=== PATIENT | female | born 1940 | race Caucasian/White ===

== ENCOUNTER 2020-03-31 14:00 | Outpatient (RCR) | payer MEDICARE, OTHER, SELFPAY ==
--- NOTE | 2020-04-23 09:55 | MHC.PT.DC ---
[facility] [place] Office [place] Office [place] Office [address] Leonel Day [address] [phone] F: [phone] F: [phone] F: [phone] F: [phone] Physical Therapy Discharge Report Diagnosis: Vertigo Date of Surgery: Date of Evaluation: 03/03/20 Date of Discharge: 04/23/20 Treatments to Date: 7 Cancellations to Date: 0 No Shows to Date: 0 Discharge Status: Discharge Summary: Pt is able to ambulate with improved balance with v/h/d head turns. The patient would still benefit from continued treatment of Torticollis, but she will return after Botox injection. Electronically signed by: Daisha Baker DPT Please sign and return to therapist. Thank you for your referral.
== END 2020-04-23 13:17 | disposition other institution (70) ==
LOC: HO.PT 14:00
PROVIDERS: PCP Internal Medicine; Visit Provider Psychiatry & Neurology Neurology
DX: G45.0 Vertebro-basilar artery syndrome (principal); G62.9 Polyneuropathy, unspecified
CPT/HCPCS: 95992; 97110; 97112; 97116; 97162; 97535

== ENCOUNTER → 2020-10-08 09:36 | Outpatient (REF) | payer MEDICARE, OTHER, SELFPAY ==
--- NOTE | 2020-10-08 09:30 | CA_ITS ---
Transthoracic Echocardiogram Patient (Last, First, Middle): Molly Sanchez, Gender: Female Date of : 1940 Age: 80 Procedure Date: 10/08/2020 Procedure Type: Transthoracic Echocardiogram Location: OP Height: 170.18 cm Weight: 79.38 kg BSA: 1.91 m2 Heart Rate: bpm BP: 138 / 78 mmHg Etl Manager: ANDREW Referring MD: Izabella Tom MD Symptoms: DIZZINESS SYNCOPE Study Quality: Technically Difficult ECG Rhythm: Sinus Conclusions: - The left ventricular systolic function is normal. The visually estimated ejection fraction is between 60-65%. - No obvious valvular pathology seen on this study. Findings Left Ventricle Normal left ventricular cavity size. There is normal left ventricular wall thickness. The left ventricular systolic function is normal. The visually estimated ejection fraction is between 60-65%. There is no evidence of regional wall motion abnormalities. E/E prime ratio is <8, consistent with normal filling pressures. Evidence suggests grade I (mild) diastolic dysfunction. Right Ventricle Normal right ventricular cavity size and systolic function. Atria The left atrium is normal in size. The right atrium is normal in size. Aortic Valve There is a normal trileaflet aortic valve. There is no aortic valve stenosis. There is no aortic valve regurgitation. Mitral Valve The mitral valve appears normal. There is no mitral valve regurgitation. There is no mitral valve stenosis. Pulmonic Valve The pulmonic valve was not well visualized. Tricuspid Valve There is trace tricuspid valve regurgitation. The pulmonary artery systolic pressure is normal. Great Vessels The aortic annulus, sinuses of valsalva, asc aorta, and aortic arch are normal in size. Venous The inferior vena cava is normal in size and collapses greater than 50% with inspiration. Pericardium/Pleural There is no evidence of pericardial effusion. Prior Study Comparison No prior study available for comparison. Recommendations, Care & Conclusions No obvious valvular pathology seen on this study. Measurements M-Mode Liner Measurements Normals - Women/Men AOV Cusps: 1.80 1.5-2.6 cm/m2 2D Linear Measurements IVSd: 0.62 0.6-0.9/0.6-1.0 cm LVIDd: 3.24 3.9-5.3/4.2-5.9 cm LVIDd Index: 1.70 2.4-3.2/2.2-3.1 cm/m2 LVIDs: 2.80 2.0-3.6 cm LVPWd: 0.53 0.7-1.1 cm Ao Root: 2.90 2.1-3.5 cm LA Diam: 3.00 2.7-3.8/3.0-4.0 cm LAIDs Index: 1.57 1.5-2.3 cm/m2 LV Mass: 52.32 67-162/88-224 g LV Mass Index: 27.39 43-95/49-115 g/m2 LVOT Diam: 1.90 3.0+(-)1.3 cm 2D Systolic Function EF 4C: 66.00 >55% EF 2C: 67.80 >55% EF BiP: 64.80 >55% Mitral Valve MV Pk E: 0.63 MV PK A: 0.92 MV Decel Time: 213.00 E/A: 0.70 E'Lateral: 10.30 E'Medial: 8.05 E/E' Med: 7.80 E/E' Lat: 6.10 PHT: 62.00 MVA PHT: 3.55 Decel Banks: 2.94 Aortic Valve AoV Pk Wali: 1.44 AoV Mn Wali: 1.01 AoV VTI: 0.30 AoV Pk Grad: 8.00 Aov Mn Grad: 5.00 BLANCA Cont.VTI: 1.43 LVOT LVOT Pk Wali: 0.83 LVOT Mn Wali: 0.61 LVOT VTI: 0.15 LVOT Pk Grad: 3.00 LVOT Mn Grad: 2.00 LVOT Diam: 1.90 LVOT Area: 2.84 Diastolic Function MV Pk E: 0.63 MV Pk A: 0.92 E/A: 0.70 E'Medial: 8.05 E/E' Med: 7.80 E' Laterial: 10.30 E/E' Lat: 6.10 Tricuspid Valve TR Pk Wali: 2.28 TR Pk Grad: 21.00 RA Press: 3.00 RVSP: 24.00 Great Vessels Aorta Ao Root-2D: 2.90 2.0-3.7 cm Ao Asc: 3.00 2.1-3.4 cm Ao Arch: 2.90 Pulmonary Valve PV Pk Wali: 0.79 Peak PV Grad: 2.00 Updated in Other Vendor System with Status of Final Timothy Fletcher MD electronically signed on 10/09/2020 2:00:13 PM with status of Final
--- NOTE | 2020-10-08 11:00 | ECG_ITS ---
Hook-up date: 2020-10-08 10:32:00 Duration: 47:59:00 Test Indications: DIZZINESS, SYNCOPE Medications: [id number] QRS complexes 5 Ventricular ectopics which represent <1 % of total QRS comp. 146 Supraventricular ectopics which represent <1 % of total QRS comp. * Paced QRS complexs which represent % of total QRS comp. VENTRICULAR ECTOPY 5 Isolated 0 Bigeminal Cycles 0 Couplets 0 Runs 0 Beats in Runs * Beats LONGEST at * BPM at :: -- * Beats FASTEST at * BPM at :: -- SUPRAVENTRICULAR ECTOPY 118 Isolated 9 Couplets 2 Runs 10 Beats in Runs 7 Beats LONGEST at 117 BPM at 04:32:23 2020-10-10 7 Beats FASTEST at 117 BPM at 04:32:23 2020-10-10 HEART RATES 65 MIN at 06:16:01 2020-10-10 75 AVG 115 MAX at 18:01:52 2020-10-09 LONGEST RR 1.1120 secs at 07:54:01 2020-10-10 S-T LEVELS Channel 1 - 128 mm at 10:32:00 2020-10-08 - 128 mm at 10:32:00 2020-10-08 Channel 2 - 128 mm at 10:32:00 2020-10-08 - 128 mm at 10:32:00 2020-10-08 Channel 3 - 128 mm at 02:95:11 -- - 128 mm at 02:95:11 Underlying rhythm is sinus; Average ventricular rate 75/min; range 65-115/min; Rare supraventricular ectopy; mostly isolated, with brief runs; Rare PVCs; Chest pain, shortness of breath, dizziness in patient diary associated with sinus rhythm. Referred By: Izabella Tom Overread By: MARYBEL MANUEL
== END ==
LOC: HO.CARD 09:36
PROVIDERS: PCP Internal Medicine; Visit Provider Psychiatry & Neurology Neurology
DX: R42 Dizziness and giddiness (principal); R55 Syncope and collapse
CPT/HCPCS: 93225; 93226; 93306

== ENCOUNTER 2020-11-22 11:00 | Outpatient (REF) | payer MEDICARE, OTHER, SELFPAY ==
[2020-11-22 11:46] LABS: MANUAL DIFF FLAG NO
[2020-11-22 11:52] LABS: Basophils Percent Auto 0.4 % (0-2); Eosinophils Absolute Auto 0.2 X10*3/uL (0.0-0.4); Eosinophils Percent Auto 2.8 % (0-4); Hemoglobin 12.7 g/dl (12.0-16.0); Imm Gran Abs Auto 0.03 X10*3/uL (0.00-0.03); Imm Gran Pct Auto 0.6 % (0.0-0.4); Lymphocytes Absolute Auto 1.3 X10*3/uL (1.2-4.9); Lymphocytes Percent Auto 24.5 % (20-40); Mean Corpuscular Hemoglobin 27.5 pg (27.0-33.0); Mean Corpuscular Volume 88.7 fL (80-98); Mean Platelet Volume 9.6 fL (9.4-12.3); Monocytes Absolute Auto 0.5 X10*3/uL (0.1-1.2); Monocytes Percent Auto 9.6 % (2-11); Neutrophils Absolute Auto 3.4 X10*3/uL (2.0-8.3); Neutrophils Percent Auto 62.1 % (45-73); Platelet Count 251 X10*3/uL (160-400); Red Blood Count 4.62 X10*6/uL (4.20-5.50); Red Cell Distribution Width 13.4 % (11.0-16.0); White Blood Count 5.4 X10*3/uL (4.8-10.8)
[2020-11-22 12:17] LABS: Anion Gap 12 (12-20); Blood Urea Nitrogen 11 mg/dL (9-16); Calcium 9.9 mg/dL (8.4-10.2); Carbon Dioxide 30 mmol/L (22-29); Chloride 105 mmol/L (96-108); Estimated Glomerular Filt Rate > 60; Glucose Random 84 mg/dL (60-115); Potassium 4.7 mmol/L (3.3-5.1); Sodium 142 mmol/L (135-145)
[2020-11-22 12:26] LABS: T4 Thyroxine 6.7 ug/dL (4.5-12.0)
[2020-11-22 12:36] LABS: Erythrocyte Sedimentation Rate 9 MM/HR (0-20)
[2020-11-28 13:32] LABS: Vitamin D 25-OH, D2 <4 ng/mL; Vitamin D 25-OH, D3 46 ng/mL; Vitamin D 25-OH, Total 46 ng/mL (30-100)
== END 2020-11-22 11:01 | disposition home or self-care (01) ==
LOC: HO.LAB 11:00
PROVIDERS: PCP Internal Medicine; Visit Provider Psychiatry & Neurology Neurology
DX: R42 Dizziness and giddiness (principal)
CPT/HCPCS: 36415; 80048; 82306; 82550; 84436; 84443; 85025; 85652

== ENCOUNTER 2025-03-03 14:57 | Outpatient (AMB) | payer MEDICARE, OTHER, SELFPAY ==
--- NOTE | 2025-03-03 15:13 | MHC.OFFVIS ---
Intake Visit Reasons: 3m PN Accompanied by: Son Allergies sulfadiazine Allergy (Unknown, Verified 03/03/25 15:14) Unknown Medication List - Last Reconciled 03/03/25 by Rozina Soni CNP alendronate 70 mg PO QWEEK amantadine HCl 100 mg PO DAILY anastrozole 1 mg PO DAILY aripiprazole 5 mg PO DAILY bupropion HCl SR 200 mg PO QAM carbidopa-levodopa 25-100 mg (Sinemet) 1 tab PO .five times a day 90 days gabapentin 100 mg PO TID tiotropium bromide 2.5 mcg/actuation (Spiriva Respimat) 2 puffs inhalation DAILY venlafaxine ER 150 mg PO DAILY venlafaxine ER 75 mg PO DAILY HPI Comments Details: She was here with her son who was visiting from [place].?She ran out of amantadine about a week ago and needed refill. She was taking carbidopa-levodopa 5x/day. She was taking medication at 9a, 12p, 3p, 6p, and 9p. Tremors in hands were about the same, some days better than others, L > R. Intermittent mild tremor in legs that started earlier this year. At the end of 01/2025, she had 2 days of bad shaking in both legs which resolved and has not happened again. She was left handed and handwriting was not so good. She was using weighted utensils which helped with eating/drinking. No difficulty swallowing. Walking with walker, no falls. She was doing some exercises at home, including recumbent bike. Some fatigue during the day. Sleep was up and down, wakes few times to use bathroom. Mood was so-so, working with psychiatrist. She had few questions about this condition. Stopped carbidopa-levodopa for a period of time in 03/2024 and then had fall that month, unclear why she stopped taking medication. Resting hand tremors, L > R. Some tremor in left leg. Legs felt bit weaker. Trouble turning in bed. Fell on 07/07/2023 after getting up from reclining chair. Began to notice tremors in hands worsening and some tremors in legs beginning. She notices hand tremors at rest and with activity. Most bothered by tremors when trying to write, handwriting is messy and smaller. Tripped and fell on right side on . Living alone with 16-year-old dog. February 13, 2022 and has been depressed and stressed and has increased in tremors. Has also lost best friend, LESLY and KERI in about one year period from [id number]. She has spinal stenosis. Exercising with recumbent bike sometimes. Has spinal stenosis in LS spine. Had an epidural in LS spine in October 2020 with some relief of pain. Getting mild ADAIR every other day for a 1/2 hr. No vertigo on lying down and sitting up for a few minutes. She's also had multiple unexplained falls, a total of about 20, where she suddenly falls to the ground. Apparently because her legs buckle under her and then she feels weak and doesn't get up for a while till it passes. She had a single syncopal episode at home without any warning woke up on the floor about a year ago. She gets lightheaded on bending forward. In the past she's been treated for torticollis by Dr. Agrawal with Botox injections. She's also had some tremors in the last few years, which have gotten better. She has a long history of headaches occurring about twice a month lasting 20 min. and going away spontaneously, sometimes with nausea but no vomiting and rarely with some photophobia. [facility] Medical History (Updated 03/03/25 @ 15:20 by Rozina Soni, FEATHER MAKER) Syncope Depression Torticollis Intervertebral disc stenosis of neural canal of lumbar region Review of Systems Const Denies chills, Denies daytime sleepiness, Reports difficulty sleeping, Reports fatigue, Denies fever(s), Denies frequent falls, Reports headache(s), Denies increased appetite, Denies poor appetite, Denies snoring, Denies weakness, Denies weight gain and Denies weight loss Eyes Denies loss of vision ENT Denies vertigo, Reports dizziness, Reports headache(s) and Reports neck pain Card Denies chest pain at rest, Denies chest pain with activity, Denies syncope, Denies leg edema, Denies palpitations, Denies dyspnea and Denies dyspnea on exertion Resp Denies cough, Denies dyspnea, Denies dyspnea on exertion and Denies snoring GI Denies abdominal pain, Reports constipation, Denies heartburn, Denies diarrhea and Denies nausea Denies urinary frequency, Denies urinary incontinence and Denies urinary urgency Musc Reports abnormal gait (balance difficulty), Reports back pain, Denies myalgias, Denies arthralgias, Reports neck pain, Denies numbness and Denies tingling Neuro Reports abnormal gait (balance difficulty), Denies vertigo, Reports dizziness, Denies syncope, Denies frequent falls, Reports headache(s), Denies lack of coordination, Denies loss of vision, Denies memory loss, Denies numbness, Denies Other visual disturbances, Denies restless legs, Denies seizure-like activity, Denies tingling, Denies paresthesias, Reports tremor(s) and Denies weakness Psych Reports anxiety, Reports depression, Denies auditory hallucinations, Denies memory loss and Denies visual hallucinations Endo Reports fatigue and Denies palpitations Physical Exam Const Other: General Appearance:? normal, in no acute distress. Heart:? S1, S2 normal, no murmurs. Lungs:? clear anteriorly and posteriorly. Musculoskeletal:? normal. Extremities:? no edema. Psych:? alert, oriented, cognitive function intact, cooperative with exam. Neuro Other: Abnormal Neurological Findings:?10 degree right torticollis. Distal blunting of pin prick and vibration. left hip flex weakness > right hip flexor weakness. Resting tremors of hands L > R, reduced with sustained posture and on finger to nose. Infrequent, mild?intermittent tremors of legs, R > L.?Slight jaw tremor. Reduced facial expressions, reduced?blinking frequency. Mild cogwheeling.?Slight?bradykinesia, forward leaning posture,?decreased arm swing. Walking with walker. Mental Status: alert and oriented X 3. Normal attention, orientation, memory, and affect. Cranial Nerves: Pupils are equal, round, and reactive to light. External ocular muscles are intact. Visual elizalde are full, no ptosis. Face is symmetrical, no facial weakness or droop. Facial sensations are normal. Tongue protrudes in midline. Palate elevates symmetrically. Shoulder shrugging is normal Motor Examination: As above. Sensory Exam: As above. Coordination: No ataxia. No titubation. Gait Exam: Walking with walker. Cerebellar Signs: [id number] is okay. Extrapyramidal System: As above. Speech: Normal. Results Reviewed Results Reviewed: NCV/EMG ALL 10/29/19 Normal motor and sensory nerve conduction velocities in the upper extremities. 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 Normal EMG in the right C5-T1 and right L4-S1 innervated muscles. 10/29/19 EEG- WNL 12/01/20 All labs are normal 01/01/20 MRA head and neck normal. 10/07/20 Holter monitor normal. 06/17/22 MRI Lumbar Spine: old T12 compression fracture. Multi level degen disc disease/ arthritis, slightly progressed since 2019. Assessment & Plan Assessment & Plan (1) Parkinsons disease: Code(s): G20 - Parkinson's disease Category: Medical Plan: Increase carbidopa-levodopa 25-100mg alternate 1 tablet and 1.5 tablets for total of five doses/day. Continue amantadine 100mg 1 capsule daily. (2) Tremor: Code(s): R25.1 - Tremor, unspecified Category: Medical (3) Peripheral neuropathy: Code(s): G62.9 - Polyneuropathy, unspecified Category: Medical Qualifiers: Peripheral neuropathy type: polyneuropathy, unspecified Qualified Code(s): G62.9 - Polyneuropathy, unspecified (4) Insomnia: Code(s): G47.00 - Insomnia, unspecified Category: Medical Qualifiers: Insomnia type: unspecified Qualified Code(s): G47.00 - Insomnia, unspecified Plan . Medications: New amantadine HCl 100 mg PO DAILY 90 caps 1RF 90 days Changed From carbidopa-levodopa 25-100 mg (Sinemet) 1 tab PO .five times a day 90 days 450 tabs 1RF To carbidopa-levodopa 25-100 mg (Sinemet) 1 tab orally alternate 1 tab and 1.5 tabs for total of 5 doses/day; 540 tabs 1RF 90 days Coding Level of Care Code Est Pt Level 4 (07609) Diagnoses Parkinsons disease G20 Tremor R25.1 Peripheral polyneuropathy G62.9 Peripheral neuropathy type: polyneuropathy, unspecified Insomnia, unspecified type G47.00 Insomnia type: unspecified
--- OUTSIDE RECORDS SUMMARY | 2025-03-03 20:09 | XMS_ITS | Encounter Summary ---
Author Organization [facility] [place] [address] Care Team Providers Care Anodizing Line Operator Name Role Phone Aarti Andres MD Primary Care Provider [phone] Encounter Details Date Type Department Care Team (Late Contact Info) Description 04/18/2024 Lab Requisition [facility] - Main Lab [address] [facility] [place] [address] Heather Douglass MD [address] [place] [id number] Encounter for other general examination Social History Tobacco Use Types Packs/Day Years Used Date Smoking Tobacco: Never Smokeless Tobacco: Never Alcohol Use Standard Drinks/Week Comments No 0 (1 standard drink = 0.6 oz pur e alcohol) Comments Unknown Sex and Gender Information Value Date Recorded Sex Assigned at Female 04/08/2024 3:46 PM EST Legal Sex Female 3:19 PM EST Gender Identity Female 04/08/2024 3:46 PM EST Sexual Orientation Straight 04/08/2024 3: 46 PM EST documented as of this encounter Plan of Treatment Upcoming Encounters Date Type Department Care Team (Late Contact Info) Description 04/02/2025 1:30 PM EST Office Visit Internal Medicine - [place] [address] [facility] [address] [place] [address] Aarti Andres MD [address] [facility] [address] [place] [address] documented as of this encounter Procedures Procedure Name Priority Date/Time Associated Diagnosis Comments COMPLETE BLOOD COUNT Routine 04/18/2024 7:32 AM EST Encounter for other general examination BASIC METABOLIC PANEL Routine 04/18/2024 7:32 AM EST Encounter for other general examination documented in this encounter Results * (ABNORMAL) Complete blood count (04/18/2024 7:32 AM EST) WBC 5.9 4.8 - 10.8 K/mcL LAB HEMETOLOGY METHOD 04/18/2024 12:36 PM [facility] RBC 4.30 3.80 - 4.80 M/mcL LAB HEMETOLOGY METHOD 04/18/2024 12:36 PM [facility] Hemoglobin 12.1 11.5 - 16.0 g/dL LAB HEMETOLOGY METHOD 04/18/2024 12:36 PM [facility] Hematocrit 39.7 35.0 - 47.0 % LAB HEMETOLOGY METHOD 04/18/2024 12:36 PM [facility] MCV 92.3 79.0 - 98.0 FL LAB HEMETOLOGY METHOD 04/18/2024 12:36 PM [facility] MCH 28.1 27.0 - 32.0 pcg LAB HEMETOLOGY METHOD 04/18/2024 12:36 PM [facility] MCHC 30.5(L) 32.0 - 37.0 g/dL LAB HEMETOLOGY METHOD 04/18/2024 12:36 PM [facility] RDW 14.0 11.0 - 15.0 % LAB HEMETOLOGY METHOD 04/18/2024 12:36 PM [facility] Platelets 242 130 - 400 K/mcL LAB HEMETOLOGY METHOD 04/18/2024 12:36 PM [facility] MPV 10.0 7.0 - 11.0 FL LAB HEMETOLOGY METHOD 04/18/2024 12:36 PM EST [facility] NRBC 0.0 <1.0 % LAB HEMETOLOGY METHOD 04/18/2024 12:36 PM [facility] NRBC Absolute 0.00 <0.10 K/mcL LAB HEMETOLOGY METHOD 04/18/2024 12:36 PM [facility] Blood Venous blood specimen / Unknown Venipuncture / Unknown 04/18/2024 7:32 AM EST 04/18/2024 11:55 AM EST us Heather Douglass MD LAB BLOOD ORDERABLES Final Res ult [facility] [address] [place] [address], * (ABNORMAL) Basic metabolic panel (04/18/2024 7:32 AM EST) Sodium 141 133 - 145 mmol/L LAB CHEMISTRY METHOD 04/18/2024 12:59 PM [facility] Potassium 4.2 3.5 - 5.5 mmol/L LAB CHEMISTRY METHOD 04/18/2024 12:59 PM [facility] Chloride 104 96 - 110 mmol/L LAB CHEMISTRY METHOD 04/18/2024 12:59 PM [facility] CO2 32 21 - 32 mmol/L LAB CHEMISTRY METHOD 04/18/2024 12:59 PM [facility] Anion Gap 5 3 - 11 LAB CHEMISTRY METHOD 04/18/2024 12:59 PM [facility] Glucose 69(L) 70 - 100 mg/dL LAB CHEMISTRY METHOD 04/18/2024 12:59 PM [facility] BUN 14 5 - 25 mg/dL LAB CHEMISTRY METHOD 04/18/2024 12:59 PM [facility] Creatinine 0.67 0.50 - 1.10 mg/dL LAB CHEMISTRY METHOD 04/18/2024 12:59 PM [facility] eGFR 88 >=60 mL/min/1. 73m2 LAB CHEMISTRY METHOD 04/18/2024 12:59 PM [facility] Comment:Calculation based on the Chronic Kidney Disease Epidemiology Collaboration (CKD-EPI) equation refit without adjustment for race. BUN/Creatinine Ratio 20.9 LAB CHEMISTRY METHOD 04/18/2024 12:59 PM [facility] Calcium 9.4 8.5 - 10.5 mg/dL LAB CHEMISTRY METHOD 04/18/2024 12:59 PM [facility] Blood Venous blood specimen / Unknown Venipuncture / Unknown 04/18/2024 7:32 AM EST 04/18/2024 11:55 AM EST us Heather Douglass MD LAB BLOOD ORDERABLES Final Res ult [facility] [address] [place] [address], documented in this encounter Visit Diagnoses Diagnosis Encounter for other general examination documented in this encounter Care Teams Anodizing Line Operator Relationship Specialty Start Date End Date Aarti Andres MD [address] [facility] [address] [place] [address] PCP - General Internal Medicine 06/24/19 documented as of this encounter
--- OUTSIDE RECORDS SUMMARY | 2025-03-03 20:09 | XMS_ITS | Clinical Summary ---
Author Organization [facility] Address [address] [place] [address] Care Team Providers Care Check Writing Machine Operator Name Role Phone Aarti Andres MD Primary Care Provider [phone] Social History Tobacco Use Types Packs/Day Years Used Date Smoking Tobacco: Never Assessed Sex and Gender Information Value Date Recorded Sex Assigned at Not on file Gender Identity Not on file Sexual Orientation Not on file Plan of Treatment Health Maintenance Due Date Last Done Comments COVID-19 Vaccine (#1) 02/16/1941 Depression Screening 1954 Preventative Health Evaluation 1960 DTap / Tdap / Td (1 - Tdap) 1961 Shingrix-Zoster Vaccine (1 of 2) 1992 Fall Risk Assessment 08/18/2007 Osteoporosis Screening (DEXA Scan) 08/18/2007 Pneumococcal Vaccine (1 of 1 - PCV) 08/18/2007 RSV Adult > 60+ Yrs or Pregn ant (1 - 1-dose 75+ series) 2017 Influenza Vaccine (#1) 2025 Hepatitis B Vaccines Aged Out No long er eligible based on patient's age to complete this topic RSV Ped < 20 months Aged Out No longe r eligible based on patient's age to complete this topic Care Teams Check Writing Machine Operator Relationship Specialty Start Date End Date Aarti Andres MD [address] [place] [phone] PCP - General Internal Medicine 06/22/20
--- OUTSIDE RECORDS SUMMARY | 2025-03-03 20:09 | XMS_ITS | Encounter Summary ---
Author Organization [facility] [place] [address] Care Team Providers Care Netbackup Engineer Name Role Phone Aarti Andres MD Primary Care Provider [phone] Encounter Details Date Type Department Care Team (Late Contact Info) Description 04/13/2024 Lab Requisition [facility] - Main Lab [address] [facility] [place] [address] Heather Douglass MD [address] [place] [phone] Encounter for other general examination Social History [...] PM EST Office Visit Internal Medicine - [place] [address] [facility] [address] [place] [address] Aarti Andres MD [address] [facility] [address] [place] [address] documented as of this encounter Procedures Procedure Name Priority Date/Time Associated Diagnosis Comments BASIC METABOLIC PANEL Routine 04/13/2024 5:38 AM EST Encounter for other general examination documented in this encounter Results * Basic metabolic panel (04/13/2024 5:38 AM EST) Sodium 142 133 - 145 mmol/L LAB CHEMISTRY METHOD 04/13/2024 7:24 AM [facility] Potassium 4.0 3.5 - 5.5 mmol/L LAB CHEMISTRY METHOD 04/13/2024 7:24 AM [facility] Chloride 107 96 - 110 mmol/L LAB CHEMISTRY METHOD 04/13/2024 7:24 AM [facility] CO2 32 21 - 32 mmol/L LAB CHEMISTRY METHOD 04/13/2024 7:24 AM [facility] Anion Gap 3 3 - 11 LAB CHEMISTRY METHOD 04/13/2024 7:24 AM [facility] Glucose 80 70 - 100 mg/dL LAB CHEMISTRY METHOD 04/13/2024 7:24 AM [facility] BUN 10 5 - 25 mg/dL LAB CHEMISTRY METHOD 04/13/2024 7:24 AM [facility] Creatinine 0.56 0.50 - 1.10 mg/dL LAB CHEMISTRY METHOD 04/13/2024 7:24 AM [facility] eGFR 92 >=60 mL/min/1. 73m2 LAB CHEMISTRY METHOD 04/13/2024 7:24 AM [facility] Comment:Calculation based on the Chronic Kidney Disease Epidemiology Collaboration (CKD-EPI) equation refit without adjustment for race. BUN/Creatinine Ratio 17.9 LAB CHEMISTRY METHOD 04/13/2024 7:24 AM [facility] Calcium 9.0 8.5 - 10.5 mg/dL LAB CHEMISTRY METHOD 04/13/2024 7:24 AM [facility] Blood Venous blood specimen / Unknown Venipuncture / Unknown 04/13/2024 5:38 AM EST 04/13/2024 6:45 AM EST us Heatehr Douglass MD LAB BLOOD ORDERABLES Final Res ult [facility] [address] [place] [address], documented in this encounter Visit Diagnoses Diagnosis Encounter for other general examination documented in this encounter Care Teams Netbackup Engineer Relationship Specialty Start Date End Date Aarti Andres MD [address] [facility] [address] [place] [phone] PCP - General Internal Medicine 06/24/19 documented as of this encounter
--- OUTSIDE RECORDS SUMMARY | 2025-03-03 20:09 | XMS_ITS | Data Portability ---
Author Organization [place] - [facility] Address [address] [place] [address] Care Team Providers Care Delivery Table Operator Name Role Phone MELIDA PAREDES Primary Care Provider Assessment Encounter Date Assessment Date Assessment LastModified by Organization Details LastModified Time 08/22/2019 08/22/2019 Overview/History : 79-year-old female yesterday tripped on a rug in her basement falling forward and landing onto her left arm on the side landing on the shoulder. Reports pain about the shoulder, decreased range of motion, pain with movement but denies paresthesias. Using ice and acetaminophen for relief. Patient fashioned a sling out of scarf and is using that for support. Exam: Elderly female lying in bed, somewhat uncomfortable appearing. Pain to palpation about the anterior aspect of the shoulder and the AC joint, significant ecchymosis throughout the bicep on the anterior and lateral aspects, no pain to palpation about the distal bicep tendon supination of the wrist intact, capillary refill brisk, shoulder range of motion significantly limited in abduction due to pain no pain to palpation about the posterior shoulder, tender to palpation about the lateral shoulder and the humeral head. DDx considered, but not limited to: Consider TATI joint separation. Consider shoulder subluxation dislocation although capillary refill brisk circulation does not appear affected. Consider fracture of the humerus elbow patient most painful about the AC joint. Consider proximal biceps tear although mechanism of injury appears less likely for this. Work up/Results: Plan/Discussion: Patient advised continue with OTC acetaminophen, eyes a found throughout the day. Advise avoid narcotic pain medication as can make drowsy more prone to falls and further injury. Will obtain x-ray to evaluate, further options pending results. Patient placed in a shoulder sling for comfort and protection. Patient instructed to call if symptoms worsen or do not improve; patient acknowledges understands and agrees with plan. Note created with voice recognition software and may contain grammatical errors due to this. Patients PCP contacted and updated on patient status. Patient verbalized understanding of discharge instructions and when to follow up with PCP/911/ED as needed. Patient in agreement with current plan and treatment. Time On Scene with Patient: 00:50:11 [id number] Not available 08/22/2019 16:15:21 Plan of Treatment Reminders Order Date Submit Date Provider Last Modified By Organization Details Last Modified Time Details Appointments None recorded. Lab None recorded. Referral None recorded. Procedures None recorded. Surgeries None recorded. Imaging XR, shoulder, 2 or more view - decreased mobility 2019 [facility] ([facility] [address] [place], [address], 0 18:20:39 XR, humerus, 2 or more view - decreased mobility 2019 [facility] ([facility] [address] [place], [address], 0 18:20:39 Medication Orders None recorded. Patient TargetsNo targets recorded. Patient InstructionsNo instructions recorded. Reason for Referral None Reported. Results Created Date Observation Date Name Description Value Unit Range Abnormal Flag Note LastModifiedBy Organization Detail LastModifiedTime 08/25/19 20 08/25/2019 shoul wendy compl ete, min 2V SHOULD ER COMPLE TE, MIN 2V, LEFT FINDIN GS: Left should er There is transv erse fractu re at the proxim al marni l neck with impact ion at the fractu re site. Otherw ise satisf actory alignm ent. Marni l head remain s in joint. CONCLU ZACKERY: Impact ed acute proxim al marni l neck fractu re, satisf actory alignm ent. ELECTR ONICAL LY SIGNED BY FRANCISCO Odell M.D. 12:37: 44 PM EDT. [facility] ([facility]) [address] [place], [address], 08/26/2019 10:33:11 04/13/20 20 08/25/2019 humer us minim um 2V HUMERU S MINIMU M 2V, LEFT FINDIN GS: Left humeru s Proxim al marni l neck fractu re is descri bed on the should er report Limite d distal humeru s remain intact . CONCLU ZACKERY: Marni l neck fractu re, acute ELECTR ONICAL LY SIGNED BY FRANCISCO Odell M.D. 12:37: 44 PM EDT. SHOULD ER COMPLE TE, MIN 2V, LEFT Result s: Left should er There is transv erse fractu re at the proxim al marni l neck with impact ion at the fractu re site. Otherw ise satisf actory alignm ent. Marni l head remain s in joint. Conclu zackery: Impact ed acute proxim al marni l neck fractu re, satisf actory alignm ent. Electr onical ly signed by FRANCISCO Odell M.D. 12:37: 44 PM EDT. HUMERU S MINIMU M 2V, LEFT Result s: Left humeru s Proxim al marni l neck fractu re is descri bed on the should er report Limite d distal humeru s remain intact . Conclu zackery: Marni l neck fractu re, acute Electr onical ly signed by FRANCISCO Odell M.D. 12:37: 44 PM EDT. [facility] ([facility]) [address], [place], [address], 08/26/2019 10:33:11 Result Notes None recorded. Medical Equipment None Reported. Allergies Allergen ID Allergen Name Allergen Category Reaction Reaction Severity Criticality Documentation Date Start Date Code Code System Note Provider Name and Address Organization Details Recorded Time [id number] Substance with sulfonami de structure and antibacte rial mechanism of action (substanc e) medicatio n Not available Not available Not available 08/22/2019 [id number] SNDIVYA CHADWICK [address] [facility], [place], [address], [place] [facility] 0 15:27:21 Medications Name Sig Start Date Stop Date Status Note LastModified by Organization Details LastModified Time bupropion HCl SR 150 mg tablet,12 hr sustained-releas e active Not Available Not Available Not Available prednisone 10 mg tablet 08/21 completed Not Available Not Available Not Available ketoconazole 2 % shampoo 08/21 completed Not Available Not Available Not Available azithromycin 250 mg tablet 08/21 completed Not Available Not Available Not Available gabapentin 400 mg capsule active Not Available Not Available N ot Available simvastatin 10 mg tablet 08/21 completed Not Available Not Available Not Available venlafaxine ER 150 mg capsule,extended release 24 hr active Not Available Not Availabl e Not Available amlodipine 2.5 mg tablet active Not Available Not Available No t Available clotrimazole-bet amethasone 1 %-0.05 % topical cream 08/21 completed Not Available Not Available Not Available Advair Diskus 250 mcg-50 mcg/dose powder for inhalation active Not Available Not Availab le Not Available omeprazole 20 mg capsule,delayed release active Not Available Not Available Not Available fluticasone propionate 50 mcg/actuation nasal spray,suspension active Not Available Not Avail able Not Available doxycycline hyclate 100 mg tablet 08/21 completed Not Available Not Available Not Available naproxen 500 mg tablet active Not Available Not Available Not Available amoxicillin 875 mg-potassium clavulanate 125 mg tablet 08/21 completed Not Available Not Available Not Available Restasis 0.05 % eye drops in a dropperette active Not Available Not Available Not Available bupropion HCl XL 300 mg 24 hr tablet, extended release active Not Available Not Available Not Available nitrofurantoin monohydrate/macr ocrystals 100 mg capsule 08/21 completed Not Available Not Available Not Available peg 3350-electrolyte s 236 gram-22.74 gram-6.74 gram-5.86 gram solution 08/21 completed Not Available Not Available Not Available bupropion HCl XL 450 mg 24 hr tablet, extended release active Not Available Not Available Not Available Readi-Cat 2 2 % (w/v) oral suspension 08/21 completed Not Available Not Available Not Available Vitals Date Recorded Heart rate Body temperature Respiratory rate Oxygen saturation Oxygen saturation in Arterial blood by Pulse oximetry Systolic And Diastolic Provider Name and Address Organization Details Last Updated DateTime 0 74 /min 98.4 [degF] 20 /min 100 % 100 % 122/64 mm[Hg] Not Available [facility] 0 15:30:56 Social History Question Answer Notes LastModified by [employer] Details LastModified Time Tobacco Smoking Status Never Smoker DIVYA ROJAS [address], [place], [address], [place] [facility] 08/22/2019 15:31:57 Do You Have An Advance Directive? Yes Information not available 08/22/2019 What Is Your Code Status? Full Code Information not available 08/22/2019 Excessive Alcohol Or Drug Use No Information not available 08/22/2019 What Was The Date Of Your Most Recent Tobacco Screening? 08/22/2019 Information not available 08/22/2019 Sex: Unknown Functional Status Question Answer Note LastModified by [employer] Details LastModified Time Do you or have you ever used smokeless tobacco? Never used smokeless tobacco Information not available 08/22/2019 Do you or have you ever used e-cigarettes or vape? Never used electronic cigarettes Information not available 08/22/2019 Mental Status None recorded. Family History Relationship Description Onset Age of this Age Resolved Age Notes LastModified by Organization Details LastModified Time Mother Malignant neoplasm of breast lsaloio Not available 2019 15:33:20 Medical History Condition Response Diabetes N Coronary Artery Disease N High Cholesterol N Pulmonary Embolism N Cancer N Hypertension N Stroke N Asthma Y COPD N Depression Y Kidney Disease N Gynecological HistoryNo gynecological history recorded. Obstetrics History GPAL:G 0 P 0 0 0 0 Past Encounters Encounter ID Performer Location Encounter Start Date Encounter Closed Date Diagnosis/Indication Diagnosis SNOMED-CT Code Diagnosis ICD10 Code Diagnosis IMO Codes Diagnosis Note [id number] [facility] [address] [place] [address] 08/22/2019 15:25:19 08/26/2019 16:57:44 Contusion of left shoulder [id number] S40.012A Health Concerns Section Related Observation LastModified by Organization Detai ls LastModified Time None Recorded Concern Status LastModified by Organization Details LastModified Time None Recorded Advance Directives Directive Y: Payers Insurance Date Sequence Insurance Name Policy Number Policy Sol Covered Member ID Sol Member ID Guarantor Name 09/27/2019 2 [facility] INDEMNITY PLAN (INDEMNITY) [id number] Maximiliano de Musis 08/26/2019 2 [employer] - SECURITY CHOICE PLUS (MEDICARE REPLACEMENT PFFS) [id number] [place] [employer] [id number] Maximiliano de Musis 08/22/2019 2 [place] [employer] Molly lester Musis [id number] Maximiliano de Musis 08/26/2019 1 [facility] - DOS PRIOR TO 2022 - DUAL ELIGIBLE (MEDICARE REPLACEMENT/ADV ANTAGE - HMO) Maximiliano de Musis [id number] Maximiliano de Musis 08/26/2019 1 [place] [employer] [place] [employer] [id number] Maximiliano de Musis 08/26/2019 1 [facility] INDEMNITY PLAN (INDEMNITY) [id number] 2 Molly de Musis [id number] Maximiliano de Musis 08/22/2019 1 *SELF PAY* Molly de Musis [id number] Maximiliano Cruzis Notes Date Note Type Note Provider Name and Address Organization Details Recorded Time 08/22/2019 text/html 79-year-old female presents for evaluation of arm pain. States yesterday she was in her basement carrying her dog's water bowl to get her some water, did not notice the rug that had been rolled up tripped over it and fell landing forward and onto her left shoulder on the side but did not hit her head. Reports pain about the shoulder, pain with movements of the arm, denies tingling. Has been using ice and Tylenol for relief but did also use a narcotic pain pill that she had leftover states she does not want to use that too much. DIVYA ROJAS [address], [place], [address], [place] [facility] 08/22/2019 16:33:46 OBGyn Episode No OBEpisode recorded.
--- OUTSIDE RECORDS SUMMARY | 2025-03-03 20:09 | XMS_ITS | Encounter Summary ---
Author Organization [facility] [place] [address] Care Team Providers Care Siphon Operator Name Role Phone Aarti Andres MD Primary Care Provider [phone] Encounter Details Date Type Department Care Team (Late Contact Info) Description 11/18/[address] [facility] Lab [address] [facility] [place] [address] Sofia Simms PA [address] [place] [address] Encounter for follow-up examination after completed treatment for malignant neoplasm Social History Tobacco Use Types Packs/Day Years [...] PM EST Office Visit Internal Medicine - [place] [address] [facility] [address] [place] [address] Aarti Andres MD [address] [facility] [address] [place] [address] documented as of this encounter Procedures Procedure Name Priority Date/Time Associated Diagnosis Comments COMPLETE BLOOD COUNT Routine 11/18/2024 4:34 AM EDT Encounter for follow-up examination after completed treatment for malignant neoplasm COMPREHENSIVE METABOLIC PANEL Routine 11/18/2024 4:34 AM EDT Encounter for follow-up examination after completed treatment for malignant neoplasm documented in this encounter Results * (ABNORMAL) Comprehensive metabolic panel (11/18/2024 4:34 AM EDT) Pathologist [facility] Sodium 142 133 - 145 mmol/L LAB CHEMISTRY METHOD 11/18/2024 11:32 AM [facility] Potassium 4.7 3.5 - 5.5 mmol/L LAB CHEMISTRY METHOD 11/18/2024 11:32 AM [facility] Chloride 106 96 - 110 mmol/L LAB CHEMISTRY METHOD 11/18/2024 11:32 AM [facility] CO2 32 21 - 32 mmol/L LAB CHEMISTRY METHOD 11/18/2024 11:32 AM [facility] Anion Gap 4 3 - 11 LAB CHEMISTRY METHOD 11/18/2024 11:32 AM [facility] Glucose 66(L) 70 - 100 mg/dL LAB CHEMISTRY METHOD 11/18/2024 11:32 AM [facility] BUN 10 5 - 25 mg/dL LAB CHEMISTRY METHOD 11/18/2024 11:32 AM [facility] Creatinine 0.68 0.50 - 1.10 mg/dL LAB CHEMISTRY METHOD 11/18/2024 11:32 AM [facility] eGFR 87 >=60 mL/min/1. 73m2 LAB CHEMISTRY METHOD 11/18/2024 11:32 AM [facility] Comment:Calculation based on the Chronic Kidney Disease Epidemiology Collaboration (CKD-EPI) equation refit without adjustment for race. BUN/Creatinine Ratio 14.7 LAB CHEMISTRY METHOD 11/18/2024 11:32 AM [facility] Calcium 9.2 8.5 - 10.5 mg/dL LAB CHEMISTRY METHOD 11/18/2024 11:32 AM [facility] AST (SGOT) 25 10 - 42 unit/L LAB CHEMISTRY METHOD 11/18/2024 11:32 AM [facility] ALT (SGPT) 52 10 - 60 unit/L LAB CHEMISTRY METHOD 11/18/2024 11:32 AM [facility] Alkaline Phosphatase 422(H) 42 - 121 unit/L LAB CHEMISTRY METHOD 11/18/2024 11:32 AM [facility] Total Protein 6.1 6.0 - 8.0 g/dL LAB CHEMISTRY METHOD 11/18/2024 11:32 AM [facility] Albumin 3.1(L) 3.2 - 5.0 g/dL LAB CHEMISTRY METHOD 11/18/2024 11:32 AM [facility] Total Bilirubin 0.2 0.0 - 1.4 mg/dL LAB CHEMISTRY METHOD 11/18/2024 11:32 AM [facility] Blood Venous blood specimen / Unknown Venipuncture / Unknown 11/18/2024 4:34 AM EDT 11/18/2024 9:15 AM EDT us Sofia STOKES LAB BLOOD ORDERABLES Final Re sult [facility] [address] [place] [address], * (ABNORMAL) Complete blood count (11/18/2024 4:34 AM EDT) WBC 4.9 4.8 - 10.8 K/mcL LAB HEMETOLOGY METHOD 11/18/2024 10:[address] [facility] RBC 3.80 3.80 - 4.80 M/mcL LAB HEMETOLOGY METHOD 11/18/2024 10:48 AM [facility] Hemoglobin 10.6(L) 11.5 - 16.0 g/dL LAB HEMETOLOGY METHOD 11/18/2024 10:48 AM [facility] Hematocrit 35.5 35.0 - 47.0 % LAB HEMETOLOGY METHOD 11/18/2024 10:48 AM [facility] MCV 92.9 79.0 - 98.0 FL LAB HEMETOLOGY METHOD 11/18/2024 10:48 AM [facility] MCH 27.7 27.0 - 32.0 pcg LAB HEMETOLOGY METHOD 11/18/2024 10:48 AM [facility] MCHC 29.9(L) 32.0 - 37.0 g/dL LAB HEMETOLOGY METHOD 11/18/2024 10:48 AM [facility] RDW 14.5 11.0 - 15.0 % LAB HEMETOLOGY METHOD 11/18/2024 10:48 AM [facility] Platelets 313 130 - 400 K/mcL LAB HEMETOLOGY METHOD 11/18/2024 10:48 AM [facility] MPV 9.5 7.0 - 11.0 FL LAB HEMETOLOGY METHOD 11/18/2024 10:48 AM [facility] NRBC 0.0 <1.0 % LAB HEMETOLOGY METHOD 11/18/2024 10:48 AM [facility] NRBC Absolute 0.00 <0.10 K/mcL LAB HEMETOLOGY METHOD 11/18/2024 10:48 AM [facility] Blood Venous blood specimen / Unknown Venipuncture / Unknown 11/18/2024 4:34 AM EDT 11/18/2024 9:15 AM EDT us Sofia STOKES LAB BLOOD ORDERABLES Final Re sult [facility] [address] [place] [address], documented in this encounter Visit Diagnoses Diagnosis Encounter for follow-up examination after completed treatment for malignant neoplasm documented in this encounter Care Teams Siphon Operator Relationship Specialty Start Date End Date Aarti Andres MD [address] [facility] [address] [place] [address] PCP - General Internal Medicine 06/24/19 documented as of this encounter
--- OUTSIDE RECORDS SUMMARY | 2025-03-03 20:09 | XMS_ITS | Encounter Summary ---
Author Organization [facility] [place] [address] Care Team Providers Care Litigator Name Role Phone Aarti Andres MD Primary Care Provider [phone] Encounter Details Date Type Department Care Team (Late Contact Info) Description 04/10/[address] [facility] - Main Lab 299 [facility] [place] [address] Heather Douglass MD [address] [place] [phone] Encounter for other general examination Social History [...] PM EST Office Visit Internal Medicine - [place] 175 [facility] [address] [place] [address] Aarti Andres MD 175 [facility] 200 [place] [address] documented as of this encounter Procedures Procedure Name Priority Date/Time Associated Diagnosis Comments CBC WITH AUTO DIFFERENTIAL Routine 04/10/2024 6:31 AM EST Encounter for other general examination CBC AND DIFFERENTIAL Routine 04/10/2024 6:31 AM EST Encounter for other general examination MAGNESIUM Routine 04/10/2024 6:31 AM EST Encounter for other general examination COMPREHENSIVE METABOLIC PANEL Routine 04/10/2024 6:31 AM EST Encounter for other general examination documented in this encounter Results * (ABNORMAL) CBC auto differential (04/10/2024 6:31 AM EST) [facility] Signature WBC 6.0 4.8 - 10.8 K/mcL LAB HEMETOLOGY METHOD 04/10/2024 11:30 AM [facility] LAB RBC 4.40 3.80 - 4.80 M/[facility] LAB HEMETOLOGY METHOD 04/10/2024 11:30 AM [facility] LAB Hemoglobin 12.3 11.5 - 16.0 g/dL LAB HEMETOLOGY METHOD 04/10/2024 11:30 AM [facility] LAB Hematocrit 40.3 35.0 - 47.0 % LAB HEMETOLOGY METHOD 04/10/2024 11:30 AM [facility] LAB MCV 91.6 79.0 - 98.0 FL LAB HEMETOLOGY METHOD 04/10/2024 11:30 AM [facility] LAB MCH 28.0 27.0 - 32.0 pcg LAB HEMETOLOGY METHOD 04/10/2024 11:30 AM [facility] LAB MCHC 30.5(L) 32.0 - 37.0 g/dL LAB HEMETOLOGY METHOD 04/10/2024 11:30 AM [facility] LAB RDW 13.5 11.0 - 15.0 % LAB HEMETOLOGY METHOD 04/10/2024 11:30 AM [facility] LAB Platelets 202 130 - 400 K/mcL LAB HEMETOLOGY METHOD 04/10/2024 11:30 AM [facility] LAB MPV 10.0 7.0 - 11.0 FL LAB HEMETOLOGY METHOD 04/10/2024 11:30 AM [facility] LAB NRBC 0.0 <1.0 % LAB HEMETOLOGY METHOD 04/10/2024 11:30 AM [facility] LAB NRBC Absolute 0.00 <0.10 K/mcL LAB HEMETOLOGY METHOD 04/10/2024 11:30 AM [facility] LAB Neutrophils Relative 52.4 % LAB HEMETOLOGY METHOD 04/10/2024 11:30 AM [facility] LAB Lymphocytes Relative 34.2 % LAB HEMETOLOGY METHOD 04/10/2024 11:30 AM [facility] LAB Monocytes Relative 9.6 % LAB HEMETOLOGY METHOD 04/10/2024 11:30 AM [facility] LAB Eosinophils Relative 3.0 % LAB HEMETOLOGY METHOD 04/10/2024 11:30 AM [facility] LAB Basophils Relative 0.5 % LAB HEMETOLOGY METHOD 04/10/2024 11:30 AM [facility] LAB Immature Granulocytes Relative 0.3 % LAB HEMETOLOGY METHOD 04/10/2024 11:30 AM [facility] LAB Neutrophils Absolute 3.16 1.50 - 7.00 K/mcL LAB HEMETOLOGY METHOD 04/10/2024 11:30 AM [facility] LAB Lymphocytes Absolute 2.06 1.00 - 5.00 K/mcL LAB HEMETOLOGY METHOD 04/10/2024 11:30 AM [facility] LAB Monocytes Absolute 0.58 0.20 - 1.00 K/mcL LAB HEMETOLOGY METHOD 04/10/2024 11:30 AM [facility] LAB Eosinophils Absolute 0.18 0.00 - 0.50 K/[facility] LAB HEMETOLOGY METHOD 04/10/2024 11:30 AM EST [facility] LAB Basophils Absolute 0.03 0.00 - 0.20 K/[facility] LAB HEMETOLOGY METHOD 04/10/2024 11:30 AM EST [facility] LAB Immature Granulocytes Absolute 0.02 0.00 - 0.03 K/[facility] LAB HEMETOLOGY METHOD 04/10/2024 11:30 AM EST [facility] LAB Blood Venous blood specimen / Unknown Venipuncture / Unknown 04/10/2024 6:31 AM EST 04/10/2024 9:49 AM EST Heather Douglass MD LAB BLOOD ORDERABLES Final Res ult Performing Organization Address City/[facility]/ZIP Co de Phone Number [facility] LAB [address] [place] [address], [place] [phone] * Magnesium (04/10/2024 6:31 AM EST) Magnesium 2.4 1.9 - 2.6 mg/dL LAB CHEMISTRY METHOD 04/10/2024 11:32 AM EST [facility] LAB Blood Venous blood specimen / Unknown Venipuncture / Unknown 04/10/2024 6:31 AM EST 04/10/2024 9:49 AM EST Heather Douglass MD LAB BLOOD ORDERABLES Final Res ult [facility] [address] [place] [address], [place] [phone] * (ABNORMAL) Comprehensive metabolic panel (04/10/2024 6:31 AM EST) Sodium 141 133 - 145 mmol/L LAB CHEMISTRY METHOD 04/10/2024 11:38 AM EST [facility] LAB Potassium 3.3(L) 3.5 - 5.5 mmol/L LAB CHEMISTRY METHOD 04/10/2024 11:38 AM [facility] LAB Chloride 104 96 - 110 mmol/L LAB CHEMISTRY METHOD 04/10/2024 11:38 AM [facility] LAB CO2 31 21 - 32 mmol/L LAB CHEMISTRY METHOD 04/10/2024 11:38 AM [facility] LAB Anion Gap 6 3 - 11 LAB CHEMISTRY METHOD 04/10/2024 11:38 AM [facility] LAB Glucose 82 70 - 100 mg/dL LAB CHEMISTRY METHOD 04/10/2024 11:38 AM [facility] LAB BUN 14 5 - 25 mg/dL LAB CHEMISTRY METHOD 04/10/2024 11:38 AM [facility] LAB Creatinine 0.88 0.50 - 1.10 mg/dL LAB CHEMISTRY METHOD 04/10/2024 11:38 AM [facility] LAB eGFR 66 >=60 mL/min/1. 73m2 LAB CHEMISTRY METHOD 04/10/2024 11:38 AM [facility] LAB Comment:Calculation based on the Chronic Kidney Disease Epidemiology Collaboration (CKD-EPI) equation refit without adjustment for race. BUN/Creatinine Ratio 15.9 LAB CHEMISTRY METHOD 04/10/2024 11:38 AM [facility] LAB Calcium 9.8 8.5 - 10.5 mg/dL LAB CHEMISTRY METHOD 04/10/2024 11:38 AM [facility] LAB AST (SGOT) 11 10 - 42 unit/L LAB CHEMISTRY METHOD 04/10/2024 11:38 AM [facility] LAB ALT (SGPT) 10 10 - 60 unit/L LAB CHEMISTRY METHOD 04/10/2024 11:38 AM [facility] LAB Alkaline Phosphatase 105 42 - 121 unit/L LAB CHEMISTRY METHOD 04/10/2024 11:38 AM [facility] LAB Total Protein 5.8(L) 6.0 - 8.0 g/dL LAB CHEMISTRY METHOD 04/10/2024 11:38 AM EST [facility] LAB Albumin 3.2 3.2 - 5.0 g/dL LAB CHEMISTRY METHOD 04/10/2024 11:38 AM EST [facility] LAB Total Bilirubin 0.4 0.0 - 1.4 mg/dL LAB CHEMISTRY METHOD 04/10/2024 11:38 AM EST [facility] LAB Blood Venous blood specimen / Unknown Venipuncture / Unknown 04/10/2024 6:31 AM EST 04/10/2024 9:49 AM EST us Heather Douglass MD LAB BLOOD ORDERABLES Final Res ult [facility] [address] [place] [address], [place] [phone] documented in this encounter Visit Diagnoses Diagnosis Encounter for other general examination documented in this encounter Care Teams Litigator Relationship Specialty Start Date End Date Aarti Andres MD [address] [phone] PCP - General Internal Medicine 06/24/19 documented as of this encounter
--- OUTSIDE RECORDS SUMMARY | 2025-03-03 20:09 | XMS_ITS | Encounter Summary ---
Author Organization [facility] [place] [address] Care Team Providers Care Tennis Court Attendant Name Role Phone Aarti Andres MD Primary Care Provider [phone] Encounter Details Date Type Department Care Team (Late Contact Info) Description 11/03/2024 Lab Requisition [facility] - Main Lab 299 [facility] [place] [address] Nissa Fernandes MD [address] [place] [address] Encounter for other general examination Social History [...] PM EST Office Visit Internal Medicine - [place] 175 [facility] [address] [place] [address] Aarti Andres MD 175 [facility] 200 [place] [address] documented as of this encounter Procedures Procedure Name Priority Date/Time Associated Diagnosis Comments CBC WITH AUTO DIFFERENTIAL Routine 11/03/2024 4:38 AM EDT Encounter for other general examination CBC AND DIFFERENTIAL Routine 11/03/2024 4:38 AM EDT Encounter for other general examination MAGNESIUM Routine 11/03/2024 4:38 AM EDT Encounter for other general examination COMPREHENSIVE METABOLIC PANEL Routine 11/03/2024 4:38 AM EDT Encounter for other general examination documented in this encounter Results * (ABNORMAL) CBC auto differential (11/03/2024 4:38 AM EDT) WBC 6.5 4.8 - 10.8 K/mcL LAB HEMETOLOGY METHOD 11/03/2024 12:08 PM [facility] LAB RBC 4.00 3.80 - 4.80 M/mcL LAB HEMETOLOGY METHOD 11/03/2024 12:08 PM [facility] LAB Hemoglobin 11.3(L) 11.5 - 16.0 g/dL LAB HEMETOLOGY METHOD 11/03/2024 12:08 PM [facility] LAB Hematocrit 37.0 35.0 - 47.0 % LAB HEMETOLOGY METHOD 11/03/2024 12:08 PM [facility] LAB MCV 92.7 79.0 - 98.0 FL LAB HEMETOLOGY METHOD 11/03/2024 12:08 PM [facility] LAB MCH 28.3 27.0 - 32.0 pcg LAB HEMETOLOGY METHOD 11/03/2024 12:08 PM [facility] LAB MCHC 30.5(L) 32.0 - 37.0 g/dL LAB HEMETOLOGY METHOD 11/03/2024 12:08 PM [facility] LAB RDW 14.6 11.0 - 15.0 % LAB HEMETOLOGY METHOD 11/03/2024 12:08 PM [facility] LAB Platelets 169 130 - 400 K/mcL LAB HEMETOLOGY METHOD 11/03/2024 12:08 PM [facility] LAB MPV 10.5 7.0 - 11.0 FL LAB HEMETOLOGY METHOD 11/03/2024 12:08 PM [facility] LAB NRBC 0.0 <1.0 % LAB HEMETOLOGY METHOD 11/03/2024 12:08 PM [facility] LAB NRBC Absolute 0.00 <0.10 K/mcL LAB HEMETOLOGY METHOD 11/03/2024 12:08 PM [facility] LAB Neutrophils Relative 55.2 % LAB HEMETOLOGY METHOD 11/03/2024 12:08 PM [facility] LAB Lymphocytes Relative 20.0 % LAB HEMETOLOGY METHOD 11/03/2024 12:08 PM [facility] LAB Monocytes Relative 11.2 % LAB HEMETOLOGY METHOD 11/03/2024 12:08 PM [facility] LAB Eosinophils Relative 12.6 % LAB HEMETOLOGY METHOD 11/03/2024 12:08 PM [facility] LAB Basophils Relative 0.5 % LAB HEMETOLOGY METHOD 11/03/2024 12:08 PM [facility] LAB Immature Granulocytes Relative 0.5 % LAB HEMETOLOGY METHOD 11/03/2024 12:08 PM [facility] LAB Neutrophils Absolute 3.60 1.50 - 7.00 K/mcL LAB HEMETOLOGY METHOD 11/03/2024 12:08 PM [facility] LAB Lymphocytes Absolute 1.30 1.00 - 5.00 K/mcL LAB HEMETOLOGY METHOD 11/03/2024 12:08 PM [facility] LAB Monocytes Absolute 0.73 0.20 - 1.00 K/mcL LAB HEMETOLOGY METHOD 11/03/2024 12:08 PM EDT [facility] LAB Eosinophils Absolute 0.82(H) 0.00 - 0.50 K/[facility] LAB HEMETOLOGY METHOD 11/03/2024 12:08 PM EDT [facility] LAB Basophils Absolute 0.03 0.00 - 0.20 K/[facility] LAB HEMETOLOGY METHOD 11/03/2024 12:08 PM EDT [facility] LAB Immature Granulocytes Absolute 0.03 0.00 - 0.03 K/[facility] LAB HEMETOLOGY METHOD 11/03/2024 12:08 PM EDT [facility] LAB Blood Venous blood specimen / Unknown Venipuncture / Unknown 11/03/2024 4:38 AM EDT 11/03/2024 10:59 AM EDT Nissa Fernandes MD LAB BLOOD ORDERABLES Final Resu lt Performing Organization Address City/[facility]/ZIP Co de Phone Number [facility] LAB [address] [place] [address], [place] [phone] * Magnesium (11/03/2024 4:38 AM EDT) [facility] Magnesium 2.3 1.9 - 2.6 mg/dL LAB CHEMISTRY METHOD 11/03/2024 1:31 PM EDT [facility] LAB Blood Venous blood specimen / Unknown Venipuncture / Unknown 11/03/2024 4:38 AM EDT 11/03/2024 10:59 AM EDT us Nissa Fernandes MD LAB BLOOD ORDERABLES Final Resu lt Performing Organization Address City/[facility]/ZIP Co de Phone Number [facility] LAB [address] [place] [address], [place] [phone] * (ABNORMAL) Comprehensive metabolic panel (11/03/2024 4:38 AM EDT) Sodium 141 133 - 145 mmol/L LAB CHEMISTRY METHOD 11/03/2024 1:35 PM [facility] LAB Potassium 3.7 3.5 - 5.5 mmol/L LAB CHEMISTRY METHOD 11/03/2024 1:35 PM [facility] LAB Chloride 104 96 - 110 mmol/L LAB CHEMISTRY METHOD 11/03/2024 1:35 PM [facility] LAB CO2 29 21 - 32 mmol/L LAB CHEMISTRY METHOD 11/03/2024 1:35 PM [facility] LAB Anion Gap 8 3 - 11 LAB CHEMISTRY METHOD 11/03/2024 1:35 PM [facility] LAB Glucose 70 70 - 100 mg/dL LAB CHEMISTRY METHOD 11/03/2024 1:35 PM [facility] LAB BUN 11 5 - 25 mg/dL LAB CHEMISTRY METHOD 11/03/2024 1:35 PM [facility] LAB Creatinine 0.80 0.50 - 1.10 mg/dL LAB CHEMISTRY METHOD 11/03/2024 1:35 PM [facility] LAB eGFR 74 >=60 mL/min/1. 73m2 LAB CHEMISTRY METHOD 11/03/2024 1:35 PM [facility] LAB Comment:Calculation based on the Chronic Kidney Disease Epidemiology Collaboration (CKD-EPI) equation refit without adjustment for race. BUN/Creatinine Ratio 13.8 LAB CHEMISTRY METHOD 11/03/2024 1:35 PM [facility] LAB Calcium 8.9 8.5 - 10.5 mg/dL LAB CHEMISTRY METHOD 11/03/2024 1:35 PM [facility] LAB AST (SGOT) 44(H) 10 - 42 unit/L LAB CHEMISTRY METHOD 11/03/2024 1:35 PM [facility] LAB ALT (SGPT) 30 10 - 60 unit/L LAB CHEMISTRY METHOD 11/03/2024 1:35 PM [facility] LAB Alkaline Phosphatase 182(H) 42 - 121 unit/L LAB CHEMISTRY METHOD 11/03/2024 1:35 PM EDT [facility] LAB Total Protein 5.9(L) 6.0 - 8.0 g/dL LAB CHEMISTRY METHOD 11/03/2024 1:35 PM EDT [facility] LAB Albumin 2.8(L) 3.2 - 5.0 g/dL LAB CHEMISTRY METHOD 11/03/2024 1:35 PM EDT [facility] LAB Total Bilirubin 0.7 0.0 - 1.4 mg/dL LAB CHEMISTRY METHOD 11/03/2024 1:35 PM EDT [facility] LAB Blood Venous blood specimen / Unknown Venipuncture / Unknown 11/03/2024 4:38 AM EDT 11/03/2024 10:59 AM EDT us Nissa Fernandes MD LAB BLOOD ORDERABLES Final Resu lt [facility] [address] [place] [address], [place] [phone] documented in this encounter Visit Diagnoses Diagnosis Encounter for other general examination documented in this encounter Care Teams Tennis Court Attendant Relationship Specialty Start Date End Date Aarti Andres MD [address] [phone] PCP - General Internal Medicine 06/24/19 documented as of this encounter
--- OUTSIDE RECORDS SUMMARY | 2025-03-03 20:09 | XMS_ITS | Encounter Summary ---
Author Organization [facility] [place] [address] Care Team Providers Care Early Childhood Lead Teacher Name Role Phone Aarti Andres MD Primary Care Provider [phone] Encounter Details Date Type Department Care Team (Late Contact Info) Description 11/11/2024 Lab Requisition [facility] - Main Lab 299 [facility] [place] [address] Sofia Simms PA [address] [place] [address] Encounter for other general examination Social History [...] PM EST Office Visit Internal Medicine - [place] 175 [facility] [address] [place] [address] Aarti Andres MD 175 [facility] [address] [place] [address] documented as of this encounter Procedures Procedure Name Priority Date/Time Associated Diagnosis Comments CBC WITH AUTO DIFFERENTIAL Routine 11/11/2024 4:50 AM EDT Encounter for other general examination CBC AND DIFFERENTIAL Routine 11/11/2024 4:50 AM EDT Encounter for other general examination COMPREHENSIVE METABOLIC PANEL Routine 11/11/2024 4:50 AM EDT Encounter for other general examination documented in this encounter Results * (ABNORMAL) CBC auto differential (11/11/2024 4:50 AM EDT) WBC 6.1 4.8 - 10.8 K/mcL LAB HEMETOLOGY METHOD 11/11/2024 11:01 AM [facility] LAB RBC 3.90 3.80 - 4.80 M/mcL LAB HEMETOLOGY METHOD 11/11/2024 11:01 AM [facility] LAB Hemoglobin 10.5(L) 11.5 - 16.0 g/dL LAB HEMETOLOGY METHOD 11/11/2024 11:01 AM [facility] LAB Hematocrit 34.9(L) 35.0 - 47.0 % LAB HEMETOLOGY METHOD 11/11/2024 11:01 AM [facility] LAB MCV 90.6 79.0 - 98.0 FL LAB HEMETOLOGY METHOD 11/11/2024 11:01 AM [facility] LAB MCH 27.3 27.0 - 32.0 pcg LAB HEMETOLOGY METHOD 11/11/2024 11:01 AM [facility] LAB MCHC 30.1(L) 32.0 - 37.0 g/dL LAB HEMETOLOGY METHOD 11/11/2024 11:01 AM [facility] LAB RDW 14.6 11.0 - 15.0 % LAB HEMETOLOGY METHOD 11/11/2024 11:01 AM [facility] LAB Platelets 285 130 - 400 K/mcL LAB HEMETOLOGY METHOD 11/11/2024 11:01 AM [facility] LAB MPV 9.6 7.0 - 11.0 FL LAB HEMETOLOGY METHOD 11/11/2024 11:01 AM [facility] LAB NRBC 0.0 <1.0 % LAB HEMETOLOGY METHOD 11/11/2024 11:01 AM [facility] LAB NRBC Absolute 0.00 <0.10 K/mcL LAB HEMETOLOGY METHOD 11/11/2024 11:01 AM [facility] LAB Neutrophils Relative 58.9 % LAB HEMETOLOGY METHOD 11/11/2024 11:01 AM [facility] LAB Lymphocytes Relative 21.1 % LAB HEMETOLOGY METHOD 11/11/2024 11:01 AM [facility] LAB Monocytes Relative 9.2 % LAB HEMETOLOGY METHOD 11/11/2024 11:01 AM [facility] LAB Eosinophils Relative 9.2 % LAB HEMETOLOGY METHOD 11/11/2024 11:01 AM [facility] LAB Basophils Relative 0.8 % LAB HEMETOLOGY METHOD 11/11/2024 11:01 AM [facility] LAB Immature Granulocytes Relative 0.8 % LAB HEMETOLOGY METHOD 11/11/2024 11:01 AM [facility] LAB Neutrophils Absolute 3.58 1.50 - 7.00 K/mcL LAB HEMETOLOGY METHOD 11/11/2024 11:01 AM [facility] LAB Lymphocytes Absolute 1.28 1.00 - 5.00 K/mcL LAB HEMETOLOGY METHOD 11/11/2024 11:01 AM [facility] LAB Monocytes Absolute 0.56 0.20 - 1.00 K/mcL LAB HEMETOLOGY METHOD 11/11/2024 11:01 AM [facility] LAB Eosinophils Absolute 0.56(H) 0.00 - 0.50 K/[facility] LAB HEMETOLOGY METHOD 11/11/2024 11:01 AM T [facility] LAB Basophils Absolute 0.05 0.00 - 0.20 K/[facility] LAB HEMETOLOGY METHOD 11/11/2024 11:01 AM EDT [facility] LAB Immature Granulocytes Absolute 0.05(H) 0.00 - 0.03 K/[facility] LAB HEMETOLOGY METHOD 11/11/2024 11:01 AM T [facility] LAB Blood Venous blood specimen / Unknown Venipuncture / Unknown 11/11/2024 4:50 AM EDT 11/11/2024 10:02 AM EDT us Sofia STOKES LAB BLOOD ORDERABLES Final Re sult [facility] LAB [address] [place] [address], * (ABNORMAL) Comprehensive metabolic panel (11/11/2024 4:50 AM EDT) Sodium 140 133 - 145 mmol/L LAB CHEMISTRY METHOD 11/11/2024 12:07 PM [facility] LAB Potassium 4.3 3.5 - 5.5 mmol/L LAB CHEMISTRY METHOD 11/11/2024 12:07 PM [facility] LAB Chloride 106 96 - 110 mmol/L LAB CHEMISTRY METHOD 11/11/2024 12:07 PM [facility] LAB CO2 27 21 - 32 mmol/L LAB CHEMISTRY METHOD 11/11/2024 12:07 PM [facility] LAB Anion Gap 7 3 - 11 LAB CHEMISTRY METHOD 11/11/2024 12:07 PM [facility] LAB Glucose 70 70 - 100 mg/dL LAB CHEMISTRY METHOD 11/11/2024 12:07 PM [facility] LAB BUN 10 5 - 25 mg/dL LAB CHEMISTRY METHOD 11/11/2024 12:07 PM [facility] LAB Creatinine 0.62 0.50 - 1.10 mg/dL LAB CHEMISTRY METHOD 11/11/2024 12:07 PM [facility] LAB eGFR 89 >=60 mL/min/1. 73m2 LAB CHEMISTRY METHOD 11/11/2024 12:07 PM [facility] LAB Comment:Calculation based on the Chronic Kidney Disease Epidemiology Collaboration (CKD-EPI) equation refit without adjustment for race. BUN/Creatinine Ratio 16.1 LAB CHEMISTRY METHOD 11/11/2024 12:07 PM [facility] LAB Calcium 9.3 8.5 - 10.5 mg/dL LAB CHEMISTRY METHOD 11/11/2024 12:07 PM [facility] LAB AST (SGOT) 42 10 - 42 unit/L LAB CHEMISTRY METHOD 11/11/2024 12:07 PM [facility] LAB ALT (SGPT) 47 10 - 60 unit/L LAB CHEMISTRY METHOD 11/11/2024 12:07 PM [facility] LAB Alkaline Phosphatase 343(H) 42 - 121 unit/L LAB CHEMISTRY METHOD 11/11/2024 12:07 PM [facility] LAB Total Protein 6.1 6.0 - 8.0 g/dL LAB CHEMISTRY METHOD 11/11/2024 12:07 PM [facility] LAB Albumin 3.1(L) 3.2 - 5.0 g/dL LAB CHEMISTRY METHOD 11/11/2024 12:07 PM [facility] LAB Total Bilirubin 0.3 0.0 - 1.4 mg/dL LAB CHEMISTRY METHOD 11/11/2024 12:07 PM [facility] LAB Blood Venous blood specimen / Unknown Venipuncture / Unknown 11/11/2024 4:50 AM EDT 11/11/2024 10:02 AM EDT us Sofia STOKES LAB BLOOD ORDERABLES Final Re sult [facility] [address] [place] [address], documented in this encounter Visit Diagnoses Diagnosis Encounter for other general examination documented in this encounter Care Teams Early Childhood Lead Teacher Relationship Specialty Start Date End Date Aarti Andres MD [address] [facility] [address] [place] [phone] PCP - General Internal Medicine 06/24/19 documented as of this encounter
--- OUTSIDE RECORDS SUMMARY | 2025-03-03 20:09 | XMS_ITS | Encounter Summary ---
Author Organization [facility] [place] [address] Care Team Providers Care Stone Driller Helper Name Role Phone Aarti Andres MD Primary Care Provider [phone] Encounter Details Date Type Department Care Team (Late Contact Info) Description 05/19/2024 Lab Requisition [facility] - Main Lab [address] [place] [address] Vinny Javier MD [address] [facility] [address] [place], [address] Parkinson's disease without dyskinesia, with fluctuations (CMS/HCC V24, CMS/HCC V28); COVID-19 Social History Tobacco Use Types Packs/Day Years [...] PM EST Office Visit Internal Medicine - [place] [address] [facility] [address] [place] [address] Aarti Andres MD [address] [phone] documented as of this encounter Procedures Procedure Name Priority Date/Time Associated Diagnosis Comments COMPLETE BLOOD COUNT Routine 05/19/2024 7:05 AM EST Parkinson's disease without dyskinesia, with fluctuations (CMS/HCC) COVID-19 COMPREHENSIVE METABOLIC PANEL Routine 05/19/2024 7:05 AM EST Parkinson's disease without dyskinesia, with fluctuations (CMS/HCC) COVID-19 documented in this encounter Results * (ABNORMAL) Comprehensive metabolic panel (05/19/2024 7:05 AM EST) Sodium 140 133 - 145 mmol/L LAB CHEMISTRY METHOD 05/19/2024 12:[address] [facility] Potassium 3.8 3.5 - 5.5 mmol/L LAB CHEMISTRY METHOD 05/19/2024 12:[address] [facility] Chloride 105 96 - 110 mmol/L LAB CHEMISTRY METHOD 05/19/2024 12:[address] [facility] CO2 30 21 - 32 mmol/L LAB CHEMISTRY METHOD 05/19/2024 12:[address] [facility] Anion Gap 5 3 - 11 LAB CHEMISTRY METHOD 05/19/2024 12:[address] [facility] Glucose 70 70 - 100 mg/dL LAB CHEMISTRY METHOD 05/19/2024 12:[address] [facility] BUN 13 5 - 25 mg/dL LAB CHEMISTRY METHOD 05/19/2024 12:[address] [facility] Creatinine 0.65 0.50 - 1.10 mg/dL LAB CHEMISTRY METHOD 05/19/2024 12:[address] [facility] eGFR 89 >=60 mL/min/1. 73m2 LAB CHEMISTRY METHOD 05/19/2024 12:[address] [facility] Comment:Calculation based on the Chronic Kidney Disease Epidemiology Collaboration (CKD-EPI) equation refit without adjustment for race. BUN/Creatinine Ratio 20.0 LAB CHEMISTRY METHOD 05/19/2024 12:[address] [facility] Calcium 8.4(L) 8.5 - 10.5 mg/dL LAB CHEMISTRY METHOD 05/19/2024 12:[address] [facility] AST (SGOT) 25 10 - 42 unit/L LAB CHEMISTRY METHOD 05/19/2024 12:[address] [facility] ALT (SGPT) 31 10 - 60 unit/L LAB CHEMISTRY METHOD 05/19/2024 12:[address] [facility] Alkaline Phosphatase 134(H) 42 - 121 unit/L LAB CHEMISTRY METHOD 05/19/2024 12:[address] [facility] Total Protein 5.8(L) 6.0 - 8.0 g/dL LAB CHEMISTRY METHOD 05/19/2024 12:[address] [facility] Albumin 3.0(L) 3.2 - 5.0 g/dL LAB CHEMISTRY METHOD 05/19/2024 12:[address] [facility] Total Bilirubin 0.3 0.0 - 1.4 mg/dL LAB CHEMISTRY METHOD 05/19/2024 12:[address] [facility] Blood Venous blood specimen / Unknown Venipuncture / Unknown 05/19/2024 7:05 AM EST 05/19/2024 11:08 AM EST us Vinny Javier MD LAB BLOOD ORDERABLES Final Resul t [facility] [address] [place] [address], * (ABNORMAL) Complete blood count (05/19/2024 7:05 AM EST) WBC 2.9(L) 4.8 - 10.8 K/mcL LAB HEMETOLOGY METHOD 05/19/2024 12:[address] [facility] RBC 4.00 3.80 - 4.80 M/mcL LAB HEMETOLOGY METHOD 05/19/2024 12:[address] [facility] Hemoglobin 11.5 11.5 - 16.0 g/dL LAB HEMETOLOGY METHOD 05/19/2024 12:[address] [facility] Hematocrit 37.3 35.0 - 47.0 % LAB HEMETOLOGY METHOD 05/19/2024 12:[address] [facility] MCV 92.8 79.0 - 98.0 FL LAB HEMETOLOGY METHOD 05/19/2024 12:[address] [facility] MCH 28.6 27.0 - 32.0 pcg LAB HEMETOLOGY METHOD 05/19/2024 12:[address] [facility] MCHC 30.8(L) 32.0 - 37.0 g/dL LAB HEMETOLOGY METHOD 05/19/2024 12:[address] [facility] RDW 13.7 11.0 - 15.0 % LAB HEMETOLOGY METHOD 05/19/2024 12:[address] [facility] Platelets 184 130 - 400 K/mcL LAB HEMETOLOGY METHOD 05/19/2024 12:[address] [facility] MPV 9.9 7.0 - 11.0 FL LAB HEMETOLOGY METHOD 05/19/2024 12:[address] [facility] NRBC 0.0 <1.0 % LAB HEMETOLOGY METHOD 05/19/2024 12:[address] [facility] NRBC Absolute 0.00 <0.10 K/mcL LAB HEMETOLOGY METHOD 05/19/2024 12:[address] [facility] Blood Venous blood specimen / Unknown Venipuncture / Unknown 05/19/2024 7:05 AM EST 05/19/2024 11:08 AM EST us Vinny Javier MD LAB BLOOD ORDERABLES Final Resul t [facility] ([facility] [address] [place] [address], documented in this encounter Visit Diagnoses Diagnosis Parkinson's disease without dyskinesia, with fluctuations (CMS/HCC V24, CMS/HCC V28) COVID-19 documented in this encounter Care Teams Stone Driller Helper Relationship Specialty Start Date End Date Aarti Andres MD 175 [facility] [address] [place] [address] PCP - General Internal Medicine 06/24/19 documented as of this encounter
--- OUTSIDE RECORDS SUMMARY | 2025-03-03 20:09 | XMS_ITS ---
Author Name [facility] Organization Unknown Care Team Organization Name Specialty Phone Email Start Date End Da te [facility] 12/31/2024 [facility] 03/21/2022 12/31/19 24
--- OUTSIDE RECORDS SUMMARY | 2025-03-03 20:09 | XMS_ITS | Data Portability ---
Author Organization [facility], [address] Address [address] [place] [address] Care Team Providers Care Children Librarian Name Role Phone MELIDA PAREDES Primary Care Provider [phone] Assessment No assessment recorded. Plan of Treatment Reminders Order Date Submit Date Provider Last Modified By Organization Details Last Modified Time Details Appointments None recorded. Lab SARS CoV 2 (COVID-19) Ag, QL, IA, upper respiratory specimen 2023 024 [email or web address] [facility], [address] [place], [address], 4 16:51:01 rapid flu (A+B) 2023 024 [email or web address] [facility], [address] [place], [address], 4 16:51:01 rapid strep group A, throat 2023 024 [email or web address] [facility], [address] [place], [address], 4 16:51:01 SARS CoV 2 (COVID-19) Ag, QL, IA, upper respiratory specimen 2023 024 [id number] [address], [address] [place], [address], 4 17:54:02 urinalysis, dipstick 2023 024 [id number], [address] [place], [address], 4 17:54:00 culture, urine 2023 024 [email or web address] 5 [facility] ([place]), [facility] [place], [address], 4 09:31:12 rapid SARS CoV 2 Ag, QL IA, respiratory specimen 2022 023 [email or web address] [address], [address] [place], [address], 3 18:08:53 rapid SARS CoV 2 Ag, QL IA, respiratory specimen 2022 023 [email or web address] 247 [address] [address], [address] [place], [address], 3 14:41:54 SARS CoV 2 RNA (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 Procedures None recorded. Surgeries None recorded. Imaging None recorded. Medication Orders amoxicillin 875 mg tablet 2023 [place] [facility], [address] [place], [address], 4 16:51:03 Flonase Allergy Relief 50 mcg/actuati on nasal spray,suspe nsion 2023 [place] [facility], [address] [place], [address], 4 16:51:03 cephalexin 500 mg capsule 2023 024 2 [facility], [address] [place], [address], 4 16:05:33 prednisone 20 mg tablet 2022 023 2 [facility], [address] [place], [address], 4 16:06:38 albuterol sulfate HFA 90 mcg/actuati on aerosol inhaler 2022 023 [place] [facility], [address] [place], [address], 3 18:08:56 Allergy Relief (fluticason e) 50 mcg/actuati on nasal spray,suspe nsion 2022 023 [email or web address] 2 [facility], [address] [place], [address], 4 16:05:28 benzonatate 100 mg capsule 2022 023 [email or web address] 2 [facility], [address] [place], [address], 4 16:05:03 Zyrtec 10 mg tablet 2022 023 [place] [facility], [address] [place], [address], 3 18:01:49 Patient TargetsNo targets recorded. Patient Instructions Encounter Date Encounter Id Patient Instructions Last Modified By Organization Details Last Modified Time 09/18/2022 [id number] shortness of breath: care instructions [email or web address] Not available 09/18/2022 18:08:54 Acute bronchitis is a condition of the lower airway with self-limited inflammation that will eventually resolve on it's own. It is usually caused by a viral infection in 95% of cases, therefore an antibiotic is not needed. Unfortunately, these symptoms can persist for approximately 3 weeks, with occasional persistence for 4-6 weeks. Treatment for bronchitis is aimed at focusing on helping to relieve your symptoms and you can implement the following remedies below, as long as they do not interfere with your current medications, past medical history, or go against advice you have received from your primary care provider and/or a specialist. If you are concerned you can always ask a pharmacist your primary care provider prior to their use. Not available 09/18/2022 18:07:26 If you test positive for COVID-19, stay home for at least 5 days and isolate from others in your home. You are likely most infectious during these first 5 days. Wear a high-quality mask if you must be around others at home and in public. Do not go places where you are unable to wear a mask. For travel guidance, see CDC s Travel webpage. Do not travel. Stay home and separate from others as much as possible. Use a separate bathroom, if possible. Take steps to improve ventilation at home, if possible. Don t share personal household items, like cups, towels, and utensils. Monitor your symptoms. If you have an emergency warning sign (like trouble breathing), seek emergency medical care immediately. If you had symptoms and: Your symptoms are improving You may end isolation after day 5 if: You are fever-free for 24 hours (without the use of fever-reducing medication). Your symptoms are not improving Continue to isolate until: You are fever-free for 24 hours (without the use of fever-reducing medication). Your symptoms are improving. Regardless of when you end isolation Until at least day 11: Avoid being around people who are more likely to get very sick from COVID-19. Remember to wear a high-quality mask when indoors around others at home and in public. Do not go places where you are unable to wear a mask until you are able to discontinue masking (see below). For travel guidance, see CDC s Travel webpage. Not available 09/18/2022 18:07:17 12/07/2023 [id number] things to do i f you've been exposed to covid-19 Not available 12/07/2023 17:53:58 coronavirus (covid-19): care instructions Not available 12/07/2023 17:53:58 Female Urinary Tract Infection (UTI): Care Instructions Not available 12/07/2023 17:53:58 Reason for Referral None Reported. Results Created Date Observation Date Name Description Value Unit Range Abnormal Flag Note LastModifiedBy Organization Detail LastModifiedTime 07/01/1907/02/2022 SARS- COV-2 , VILLA sars-cov-2, VILLA NOT DETECT ED not detect ed This nucle ic acid ampli ficat ion test was devel oped and its perfo rmanc e johnathon cteri stics deter mined by [employer] rp Labor atori es. Nucle ic acid ampli ficat ion tests inclu de RT-PC R and TMA. This test has not been FDA clear ed or appro agustina. This test has been autho rized by FDA under an Emerg ency Use Autho rizat ion (EUA) . This test is only autho rized for the durat ion of time the decla ratio n that circu mstan nasra exist justi fying the autho rizat ion of the emerg ency use of in vitro diagn ostic tests for detec tion of SARS- CoV-2 virus and/o r diagn osis of COVID -19 infec tion under secti on 564(b )(1) of the Act, 21 U.S.C . 360bb b-3(b ) (1), unles s the autho rizat ion is termi nated or revok ed soone r. When diagn ostic testi ng is negat shravan, the possi bilit y of a false negat shravan resul t shoul d be consi dered in the roberto carlos xt of a patie nt's recen t expos ures and the prese nce of clini rajat signs and sympt oms consi stent with COVID -19. An indiv idual witho ut sympt oms of COVID -19 and who is not michele ing SARS- CoV-2 virus would expec t to have a negat shravan (not detec luz maria) resul t in this assay . Not Available [facility] ([facility]) [address], [place], [address], 07/02/2022 18:05:49 07/01/19 23 07/02/2022 SARS- COV-2 , VILLA sars-cov-2, VILLA 2 day tat PERFOR MED Not Available [facility] ([facility]) [address], [place], [address], 07/02/2022 18:05:49 07/01/19 23 07/01/2022 rapid SARS CoV 2 Ag, QL IA, respi rator y speci men Unknown Analyte Normal =Negat shravan Not Available [facility] [address] [place], [address], 07/01/2022 13:56:32 07/01/19 23 07/01/2022 rapid SARS CoV 2 Ag, QL IA, respi rator y speci men Unknown Analyte negati ve Not Available [facility] [address] [place], [address], 07/01/2022 13:56:32 09/19/19 23 09/18/2022 rapid SARS CoV 2 Ag, QL IA, respi rator y speci men Unknown Analyte Normal =Negat shravan Not Available [facility] [address] [place], [address], 09/18/2022 18:05:33 09/19/19 23 09/18/2022 rapid SARS CoV 2 Ag, QL IA, respi rator y speci men Unknown Analyte negati ve Not Available [facility] [address] [place], [address], 09/18/2022 18:05:33 12/07/19 24 12/07/2023 urina lysis , dipst ick Unknown Analyte Light Yellow Not Available [facility] [place], [address], 12/07/2023 17:04:56 12/07/19 24 12/07/2023 urina lysis , dipst ick Unknown Analyte Clear Not Available _ [facility] [address] [place], [address], 12/07/2023 17:04:56 12/07/1912/07/2023 urina lysis , dipst ick Unknown Analyte Negati ve Not Available [facility] [address] [place], [address], 12/07/2023 17:04:56 12/07/1912/07/2023 urina lysis , dipst ick Unknown Analyte Negati ve Not Available [address] [place], [address], 12/07/2023 17:04:56 12/07/19 24 12/07/2023 urina lysis , dipst ick Unknown Analyte 15 mg/dL Not Available [facility] [address] [place], [address], 12/07/2023 17:04:56 12/07/1912/07/2023 urina lysis , dipst ick Unknown Analyte 1.030 Not Available [address] [place] [address] [address] [place], [address], 12/07/2023 17:04:56 12/07/1912/07/2023 urina lysis , dipst ick Unknown Analyte Negati ve Not Available [address] [place], [address], 12/07/2023 17:04:56 12/07/1912/07/2023 urina lysis , dipst ick Unknown Analyte 5.5 Not Available [address] [place] [address] [address] [place], [address], 12/07/2023 17:04:56 12/07/1912/07/2023 urina lysis , dipst ick Unknown Analyte 100 mg/dL Not Available [facility] [address] [address] [place], [address], 12/07/2023 17:04:56 12/07/19 24 12/07/2023 urina lysis , dipst ick Unknown Analyte 1.0 E.U./d L Not Available [facility] [address] [place], [address], 12/07/2023 17:04:56 12/07/19 24 12/07/2023 urina lysis , dipst ick Unknown Analyte Negati ve Not Available [facility] [address] [place], [address], 12/07/2023 17:04:56 12/07/19 24 12/07/2023 urina lysis , dipst ick Unknown Analyte Negati ve Not Available [facility] [address] [place], [address], 12/07/2023 17:04:56 12/07/19 24 12/07/2023 SARS CoV 2 (COVI D-19) Ag, QL, IA, upper respi rator y speci men Unknown Analyte negati ve Not Available [facility] [address] [place], [address], 12/07/2023 17:05:12 12/07/19 24 12/07/2023 SARS CoV 2 (COVI D-19) Ag, QL, IA, upper respi rator y speci men Unknown Analyte yes Not Available [address] [place] [address] [address] [place], [address], 12/07/2023 17:05:12 03/21/20 24 03/21/2024 rapid flu (A+B) Unknown Analyte negati ve Not Available [facility] [address] [place], [address], 03/21/2024 16:33:55 03/21/20 24 03/21/2024 rapid flu (A+B) Unknown Analyte negati ve Not Available [facility] [address] [place], [address], 03/21/2024 16:33:55 03/21/20 24 03/21/2024 rapid flu (A+B) Unknown Analyte yes Not Available [address] [place] [address] [address] [place], [address], 03/21/2024 16:33:55 03/21/20 24 03/21/2024 SARS CoV 2 (COVI D-19) Ag, QL, IA, upper respi rator y speci men Unknown Analyte negati ve Not Available [facility] [address] [place], [address], 03/21/2024 16:33:49 03/21/20 24 03/21/2024 SARS CoV 2 (COVI D-19) Ag, QL, IA, upper respi rator y speci men Unknown Analyte yes Not Available [address] [place] [address] [address] [place], [address], 03/21/2024 16:33:49 03/21/20 24 03/21/2024 rapid strep group A, throa t Unknown Analyte negati ve Not Available [facility] [address] [place], [address], 03/21/2024 16:34:07 03/21/20 24 03/21/2024 rapid strep group A, throa t Unknown Analyte yes Not Available [address] [place] [address] [address] [place], [address], 03/21/2024 16:34:07 Result Notes None recorded. 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 Procedures Surgical History Date Name Laterality Status Provider Name and Address Organization Details Recorded Time Hip arthro w/femoroplast y completed AMANDA NIETO PA - [facility] 09/18/2022 17:58:36 Imaging Results None recorded. Procedure Notes None recorded. Medical Equipment None Reported. Allergies Allergen ID Allergen Name Allergen Category Reaction Reaction Severity Criticality Documentation Date Start Date Code Code System Note Provider Name and Address Organization Details Recorded Time 275592 Substance with sulfonami de structure and antibacte rial mechanism of action (substanc e) medicatio n hives Not available Not available 07/01/2022 78907 8003 SNOMED Gerardo hucthins, PA - [facility] 3 13:53:22 Medications Name Sig Start Date Stop Date Status Note LastModified by Organization Details LastModified Time rid complete lice elimination FOLLOW PACKAGE INSTRUCTI ONS active Not Available Not Available No t Available quetiapine 25 mg tablet TAKE ONE TABLET BY MOUTH TWICE A DAY 09/18 completed Not Available Not Available Not Available amoxicillin 500 mg capsule TAKE ONE CAPSULE BY MOUTH THREE TIMES A DAY active Not Available Not Available No t Available anastrozole 1 mg tablet TAKE ONE TABLET BY MOUTH EVERY DAY active Not Available Not Available No t Available primidone 50 mg tablet TAKE ONE TABLET BY MOUTH THREE TIMES A DAY 03/21 completed Not Available Not Available Not Available bupropion HCl SR 150 mg tablet,12 hr sustained-r elease TAKE ONE TABLET BY MOUTH EVERY DAY 03/21 completed Not Available Not Available Not Available venlafaxine ER 75 mg capsule,ext ended release 24 hr TAKE 1 CAPSULE BY MOUTH EVERY DAY active Not Available Not Available No t Available atorvastati n 20 mg tablet TAKE ONE TABLET BY MOUTH EVERY DAY active Not Available Not Available No t Available trazodone 50 mg tablet TAKE ONE TABLET BY MOUTH DAILY AT BEDTIME NEEDED 03/21 completed Not Available Not Available Not Available azithromyci n 250 mg tablet TAKE 2 TABLETS ON FIRST DAY , THEN 1 TABLET DAILY FOR 4 DAYS 03/21 completed Not Available Not Available Not Available cephalexin 250 mg capsule TAKE ONE CAPSULE BY MOUTH FOUR TIMES A DAY FOR 7 DAYS 03/21 completed Not Available Not Available Not Available phenazopyri dine 200 mg tablet TAKE ONE TABLET BY MOUTH THREE TIMES A DAY FOR 2 DAYS MAY DISCOLOR URINE AND CONTACTS 07/01 completed Not Available Not Available Not Available prednisone 20 mg tablet Take 2 tablets every day by oral route in the morning for 4 days. 03/21 completed Not Available Not Available Not Available alendronate 70 mg tablet TAKE 1 TABLET BY MOUTH WEEKLY active Not Available Not Available No t Available fluorouraci l 5 % topical cream APPLY TO PRE CANCERS ON NOSE TWO TIMES A DAY FOR 2 WEEKS active Not Available Not Available No t Available venlafaxine ER 150 mg capsule,ext ended release 24 hr TAKE ONE CAPSULE BY MOUTH EVERY DAY active Not Available Not Available No t Available amlodipine 2.5 mg tablet TAKE ONE TABLET BY MOUTH EVERY DAY 03/21 completed Not Available Not Available Not Available Zyrtec 10 mg tablet Take 1 tablet every day by oral route for 30 days. 09/18 completed Not Available Not Available Not Available ciprofloxac in 250 mg tablet TAKE ONE TABLET BY MOUTH TWICE A DAY active Not Available Not Available No t Available tramadol 50 mg tablet TAKE ONE TABLET BY MOUTH AT BEDTIME NEEDED 09/18 completed Not Available Not Available Not Available propranolol 40 mg tablet TAKE TWO TABLETS BY MOUTH TWICE A DAY 03/21 completed Not Available Not Available Not Available amoxicillin 875 mg tablet TAKE ONE TABLET BY MOUTH EVERY 12 HOURS WITH MEALS FOR 10 DAYS active Not Available Not Available No t Available Lice Treatment (permethrin ) 1 % topical liquid FOLLOW PACKAGE INSTRUCTI ONS 07/01 completed Not Available Not Available Not Available benzonatate 100 mg capsule TAKE ONE CAPSULE BY MOUTH THREE TIMES A DAY NEEDED FOR COUGH FOR UP TO 10 DAYS DO NOT CRUSH OR CHEW active Not Available Not Available No t Available cephalexin 500 mg capsule Take 1 capsule twice a day by oral route for 5 days, for uti. 03/21 completed Not Available Not Available Not Available Advair Diskus 250 mcg-50 mcg/dose powder for inhalation INHALE ONE PUFF BY MOUTH TWICE A DAY IN THE MORNING AND IN THE EVENING APPROXIMA TELY 12 HOURS APART 07/01 completed Not Available Not Available Not Available Advair Diskus 500 mcg-50 mcg/dose powder for inhalation INHALE ONE PUFF BY MOUTH TWICE A DAY IN THE MORNING AND IN THE EVENING APPROXIMA TELY 12 HOURS APART 07/01 completed Not Available Not Available Not Available methimazole 5 mg tablet TAKE ONE-HALF TABLET BY MOUTH EVERY DAY active Not Available Not Available No t Available hydroxyzine HCl 25 mg tablet TAKE ONE TABLET BY MOUTH DAILY AT BEDTIME active Not Available Not Available No t Available levofloxaci n 500 mg tablet TAKE ONE TABLET BY MOUTH EVERY DAY FOR 7 DAYS active Not Available Not Available No t Available albuterol sulfate HFA 90 mcg/actuati on aerosol inhaler Inhale 2 puffs every 4-6 hours by inhalatio n route as needed for 10 days. active Not Available Not Available No t Available carbidopa 25 mg-levodopa 100 mg tablet TAKE ONE TABLET BY MOUTH FOUR TIMES A DAY FOR 90 DAYS active Not Available Not Available No t Available oxybutynin chloride 5 mg tablet TAKE ONE TABLET BY MOUTH DAILY AT BEDTIME active Not Available Not Available No t Available fluticasone propionate 50 mcg/actuati on nasal spray,suspe nsion USE 1 SPRAY IN EACH NOSTRIL ONCE DAILY active Not Available Not Available No t Available ipratropium bromide 21 mcg (0.03 %) nasal spray USE 2 SPRAYS IN EACH NOSTRIL THREE TIMES A DAY 07/01 completed Not Available Not Available Not Available amoxicillin 875 mg-nadineiu m clavulanate 125 mg tablet TAKE ONE TABLET BY MOUTH TWICE A DAY 03/21 completed Not Available Not Available Not Available bupropion HCl SR 200 mg tablet,12 hr sustained-r elease TAKE 1 TABLET BY MOUTH EVERY MORNING active Not Available Not Available No t Available Allergy Relief (loratadine ) 10 mg tablet TAKE ONE TABLET BY MOUTH EVERY DAY active Not Available Not Available No t Available aripiprazol e 5 mg tablet TAKE 1 TABLET BY MOUTH ONCE DAILY active Not Available Not Available No t Available bupropion HCl XL 300 mg 24 hr tablet, extended release TAKE ONE TABLET BY MOUTH EVERY MORNING 09/18 completed Not Available Not Available Not Available bupropion HCl XL 150 mg 24 hr tablet, extended release TAKE ONE TABLET BY MOUTH EVERY DAY IN THE MORNING 09/18 completed Not Available Not Available Not Available nitrofurant oin monohydrate /macrocryst als 100 mg capsule TAKE ONE CAPSULE BY MOUTH TWICE A DAY FOR INFECTION 09/18 completed Not Available Not Available Not Available carbidopa 03/21 completed Not Available Not Available Not Available aripiprazol e 2 mg tablet TAKE ONE TABLET BY MOUTH EVERY DAY 09/18 completed Not Available Not Available Not Available GaviLyte-G 236 gram-22.74 gram-6.74 gram-5.86 gram oral solution MIX AND TAKE 8 OUNCES DIRECTED FOLLOW INSTRUCTI ONS PROVIDED BY OFFICE 09/18 completed Not Available Not Available Not Available Spiriva Respimat 2.5 mcg/actuati on solution for inhalation INHALE TWO PUFFS BY MOUTH EVERY DAY AT THE SAME TIME EACH DAY active Not Available Not Available No t Available Spiriva Respimat 1.25 mcg/actuati on solution for inhalation INHALE TWO PUFFS BY MOUTH EVERY DAY 07/01 completed Not Available Not Available Not Available Vitals Date Recorded Body height Body mass index (BMI) Body weight Oxygen saturation Oxygen saturation in Arterial blood by Pulse oximetry Heart rate Respiratory rate Body temperature Systolic And Diastolic Provider Name and Address Organization Details Last Updated DateTime 3 170.18 cm 27.4 kg/m2 04396.6 6 g 98 % 98 % 75 /min 18 /min 97.8 [degF] 143/85 mm[Hg] Gerardo Fragoso PA - [facility] 3 13:53:01 Date Recorded Body height Body mass index (BMI) Body weight Oxygen saturation Oxygen saturation in Arterial blood by Pulse oximetry Heart rate Body temperature Respiratory rate Systolic And Diastolic Provider Name and Address Organization Details Last Updated DateTime 3 170.18 cm 29.1 kg/m2 75587.1 8 g 97 % 97 % 82 /min 97.9 [degF] 24 /min 150/80 mm[Hg] AMANDA EMILIA PA - [facility] 3 17:50:51 Date Recorded Body height Body mass index (BMI) Body weight Body temperature Respiratory rate Oxygen saturation Oxygen saturation in Arterial blood by Pulse oximetry Heart rate Systolic And Diastolic Provider Name and Address Organization Details Last Updated DateTime 4 170.18 cm 29.1 kg/m2 24757.1 8 g 97.7 [degF] 18 /min 95 % 95 % 100 /min 141/84 mm[Hg] Carline Estevez PA - [facility] 4 16:59:10 Date Recorded Body height Body mass index (BMI) Body weight Body temperature Respiratory rate Pain severity - 0-10 verbal numeric rating [Score] - Reported Heart rate Oxygen saturation Oxygen saturation in Arterial blood by Pulse oximetry Systolic And Diastolic Provider Name and Address Organization Details Last Updated DateTime 4 170.18 cm 26.8 kg/m2 79711.3 g 97.8 [degF] 16 /min 7 76 /min 97 % 97 % 123/82 mm[Hg] Bety Oconnell PA - [facility] 4 16:11:40 Social History Question Answer Notes LastModified by Organizat ion Details LastModified Time Tobacco Smoking Status Never Smoker Bety hutchins PA - [facility] 03/21/2024 16:07:49 Have You Had A Flu Shot This Season? Yes [email or web address] Information not available 03/21/2024 If No, Would You Like A Flu Shot Today? A/P [email or web address] Information not available 03/21/2024 What Was The Date Of Your Most Recent Tobacco Screening? 03/21/2024 [email or web address] Information not available 03/21/2024 Have You Recently Traveled Abroad? No Information not available 07/01/2022 Sex: Unknown Functional Status Question Answer Note LastModified by Organizat ion Details LastModified Time Do you use any illicit or recreational drugs? No Information not available 07/01/2022 Do you or have you ever used any other forms of tobacco or nicotine? No Information not available 07/01/2022 What is your level of alcohol consumption? None [email or web address] Information not available 03/21/2024 Are you currently employed? No [email or web address] Information not available 03/21/2024 Mental Status None recorded. Family History Relationship Description Onset Age of this Age Resolved Age Notes LastModified by Organization Details LastModified Time Father No current problems or disability Not available 07/01 13:56:18 Mother No current problems or disability Not available 07/01 13:56:18 Mother Malignant neoplasm of breast [email or web address] Not available 2022 17:57:22 Medical History No medical history recorded. Gynecological History Statement/Question Response LMP N/A Obstetrics History GPAL:G 0 P 0 0 0 0 Immunizations Vaccine Type Date Status Note Provider Nam e and Address Organization Details Recorded Time Influenza, high-dose, quadrivalent, PF 2 completed Carline Zenaida null, PA - [facility] 12/07/2023 16:56:08 Influenza, high-dose, quadrivalent, PF 0 completed Carline Zenaida null, PA - [facility] 12/07/2023 16:56:08 Influenza, adjuvanted, quadrivalent, PF 1 completed Carline Zenaida null, PA - [facility] 12/07/2023 16:56:08 COVID-19, mRNA, LNP-S, PF, 30 mcg/0.3 mL dose 1 completed Carlinegaviota Manets null, PA - [facility] 12/07/2023 16:56:08 COVID-19, mRNA, LNP-S, PF, 30 mcg/0.3 mL dose 1 completed Carline Estevez null, PA - [facility] 12/07/2023 16:56:08 Tdap 1 completed Carline Zenaida null, PA - [facility] 12/07/2023 16:56:08 Influenza, split virus, trivalent, preservative 2 completed Carline Zenaida null, PA - [facility] 12/07/2023 16:56:08 Influenza, split virus, trivalent, PF 4 completed Carline Zenaida null, PA - [facility] 12/07/2023 16:56:08 Influenza, split virus, trivalent, PF 7 completed Carline Zenaida null, PA - [facility] 12/07/2023 16:56:08 Influenza, split virus, trivalent, PF 5 completed Carline Zenaida null, PA - [facility] 12/07/2023 16:56:08 Influenza, split virus, quadrivalent, PF 8 completed Carline Zenaida null, PA - [facility] 12/07/2023 16:56:08 Past Encounters Encounter ID Performer Location Encounter Start Date Encounter Closed Date Diagnosis/Indication Diagnosis SNOMED-CT Code Diagnosis ICD10 Code Diagnosis IMO Codes Diagnosis Note [id number] [address] [place] [address] 01/07/2022 13:42:26 01/07/2022 14:29:18 [id number] [address] [place] [address] 12/30/2021 18:13:15 12/30/2021 19:22:25 [id number] [address] [place] [address] 04/03/2022 11:16:34 04/03/2022 15:23:13 [id number] [address] [place] [address] 12/03/2021 18:01:56 12/03/2021 18:47:11 [id number] SHANTELLE [facility]ES [facility] [address] [address] [place] [address] 07/01/2022 12:00:44 07/01/2022 14:43:18 Cough 98134752 R05.9 CoughBlack Elderberry Syrup:1-2 tsp 2-3 times a day for 5 days as needed for coughing.S ambucol Black Elderberry Original Syrup (available at [employer] )Pat Herbs Black Elderberry Syrup, 5.4-Ounce Bottle (available at [employer] or [employer]) Use a cool mist humidifier in the room that you sleep to add moisture to the air, which should soothe the airways and help loosen any mucus that may be present. Nasal congestion 0227889 0 R09.81 Nasal Sprays:Nor mal Saline Mist- [place] into each nostril 3-4 times a day for 5-7Nasalcr om [place]: 1 sprays to each nostril every 6 hours for 7 days. Postviral fatigue syndrome 54594696 G93.31 Energy SupportB- Complex 50 (B-Vitamin s)take 1 a day to boost energy and help manage stress. [id number] Mone Chaney MD [facility] [address] [place] [address] 09/18/2022 17:37:05 09/18/2022 18:17:15 Acute bronchitis 12719399 J20.9 Exposure t o SARS-CoV-2 831859069 Z20.822 [id number] Vita Echeverria NP [address] [place] [address] 12/07/2023 16:34:13 12/07/2023 18:02:43 Dysuria-frequency syndrome 0377413 R30.0 The following are recommenda tions to help with your symptoms and recovery:1 . Drink Plenty of fluids - Stay hydrated2. Finish full antibiotic course3. I recommend starting a Probiotic - I recommend Florastor4 . If you take Azo - this will help the burning and urgency feeling - just be aware it will turn your urine bright yellow. I would not hesitate to be seen again if you develop:1. Severe Back Pain2. Abdominal Pain3. Nausea and Vomiting4. Vaginal Discharge or Bleeding5. Fever > 101.0 You symptoms should improve within 72 hours for a typically UTI. If a urine culture was sent out to the lab for you we should get the results back within 4 days. This will be able to prove that your symptoms are caused by a UTI and it will also verify that the correct antibiotic was prescribed . Thank you for using varinode - please don't hesistate to call our office if you have any questions or concerns. Exposure t o SARS-CoV-2 738451040 Z20.822 [id number] [place] [address] [facility] [address] [place] [address] 03/21/2024 15:35:54 03/21/2024 16:52:30 Acute sinusitis 89549741 J01.90 Given Hx and Sx and PE findings will Rx Antibiotic s and nasal spray Take antibiotic with food. Eat a yogurt daily or take a probiotic while taking the antibiotic . Recommend humidified airrest, fluidstyle nol/ibu prn Patient advised to follow up as needed for worsening symptoms or no improvemen t. Discussed concerning red flags with patient and reasons to follow up in the Emergency Department urgently. Health Concerns Section Related Observation LastModified by Organization Detai ls LastModified Time None Recorded Concern Status LastModified by Organization Details LastModified Time None Recorded Advance Directives Directive None Recorded Payers Insurance Date Sequence Insurance Name Policy Number Policy Sol Covered Member ID Sol Member ID Guarantor Name 03/21/2024 2 [employer] - S[employer]IOR [employer] PLAN F (MEDICARE SUPPLEMENT) [id number] Molly Rodgers [id number] Molly Rodgers 03/21/2024 1 [place] [employer] Molly Rodgers [id number] Molly Rodgers Notes Date Note Type Note Provider Name and Address Organization Details Recorded Time 07/01/19 23 text/htm l ROS as noted in the HPI Pt is requesting a covid test due to an exposure 6 days ago. Pt c/o fatigue, SOB, cough and congestion. SHANTELLE FUENTES MD [address] [place], [address], [place] - [facility] 07/01/2022 14:46:59 09/19/19 23 text/htm l Shortness of BreathReported by Patientpulmonary symptomsFor timing, patient reportsrecurring intermittently (episodic)andwith environmental exposurebut reports5 days. For additional symptoms, patient reportsanxietyandcoughbut reportsno nauseaandno fatigue. For source of patient information, patient reportssource of patient information __. Esteban Carlton NP [address] [place], [address], [place] - [facility] 09/18/2022 18:10:26 12/07/19 24 text/htm l UTI female UCReported by PatientUrinary problemsFor uti symptoms, patient reportsurgency,burning sensation during urination, andurinary frequencybut reportsno blood in the urine,no vaginal discharge,no pain in the flank,no fever/chills,no incontinence, andno recurrent uti. For source of patient information, patient reportsinformation obtained from patientandpatient arrived at urgent care ambulatory. For severity, patient reportsmoderate. For duration, patient reportsstarted ___and2 days. For modifying factors, patient reportsnothing gives relief. -post exposure to covid-, presently not feeling well , has headache/ fatigue- concerned of possible UTI Vita Echeverria NP [address] [place], [address], [place] - [facility] 01/03/2024 10:02:32 03/21/20 24 text/htm l Sore throatReported by [email or web address] yo female c/o sorethroat, L side sinus pain, facial pain, ADAIR, ear ache x 5 d No feverNo chillsNo nauseaNo vomitingNo coughNo wheezeNo difficulty breathing or respiratory distressNo CPNo Abdominal painNo diarrheaNo myalgiaNo fatigueNo rashNo dizzinessNo recent travelNo known sick contacts ROS as noted in the HPI Richie Berg, [address] [place], [address], [place] - [facility] 03/21/2024 16:53:02 OBGyn Episode No OBEpisode recorded.
--- OUTSIDE RECORDS SUMMARY | 2025-03-03 20:09 | XMS_ITS | Clinical Summary ---
Author Organization [address] Address [address] [place] [phone] Phone Care Team Providers Care Inspector Heating And Refrigeration Name Role Phone Aarti Andres MD Primary Care Provider [phone] Allergies Active Allergy Reactions Criticality Noted Date Comments Sulfa (Sulfonamide Antibiotics) 01/02/2018 No reaction documented. Medications anastrozole (ARIMIDEX) 1 mg Take 1 Tablet by mouth daily. Active ARIPiprazole (ABILIFY) 5 mg tablet Take 1 Tablet by mouth daily. Active aspirin 81 mg EC tablet Take 1 Tablet by mouth daily. Active atorvastatin (LIPITOR) 20 mg tablet Take 1 Tablet by mouth daily. 07/10/2023 Active buPROPion SR (WELLBUTRIN SR) 200 mg 12 hr tablet Take 1 Tablet by mouth 2 times daily. Active calcium carbonate (CALCIUM 500 ORAL) Take 1 Tab by mouth daily. Active carbidopa-levod opa (SINEMET) 25-100 mg per tablet Take 1 Tablet by mouth 4 times daily. 11/08/2023 Active fluticasone-melanie meterol (ADVAIR DISKUS) 250-50 mcg/dose diskus inhaler Inhale 1 Puff into the lungs every 12 hours. 11/10/2019 Active hydrOXYzine HCL (ATARAX) 25 mg tablet Take 1 Tablet by mouth at bedtime for 360 days. 11/08/2023 Active omeprazole (PriLOSEC) [address] capsule Take 20 mg by mouth daily. Active methIMAzole (TAPAZOLE) 5 mg tablet Take 0.5 tablets (2.5 mg total) by mouth 1 (one) time each day. 03/04/2024 Active venlafaxine XR (EFFEXOR-XR) 150 mg 24 hr capsule Take 225 mg by mouth 1 (one) time each day. 05/01/2019 Active alendronate (FOSAMAX) 70 mg tablet TAKE 1 TABLET BY MOUTH WEEKLY 12 tablet 3 06/12/2024 Active gabapentin (NEURONTIN) 100 mg capsule Take 1 capsule (100 mg total) by mouth 3 (three) times a day. 90 each 5 11/25/2024 05/24/19 26 Active nitrofurantoin, macrocrystal-mo nohydrate, (MACROBID) 100 mg capsule Take 1 capsule (100 mg total) by mouth 2 (two) times a day for 7 days. 14 each 01/26/2025 02/03/20 25 Active Problems Problem Noted Date Diagnosed Date Parkinson's disease without dyskinesia, without mention of fluctuations ([facility] V24, [facility] V28) 05/29/2024 Anxiety disorder, unspecified 05/29/2024 Depression, unspecified 05/29/2024 Other specified chronic obst ructive pulmonary disease ([facility] V24, [facility] V28) 05/29/2024 Malignant neoplasm of unspec ified site of unspecified female breast ([facility] V24, [facility] V28) 05/29/2024 Gastro-esophageal reflux disease without esophag itis 05/29/2024 Anxiety 02/15/2024 Asthma 02/15/2024 Constipation 02/15/2024 Depression 02/15/2024 GERD (gastroesophageal reflux disease) Migraines 02/15/2024 Torticollis 02/15/2024 Parkinson's disease (tremor, stiffness, slow motion, unstable posture) ([facility] V24, [facility] V28) 11/08/2023 Vertigo 07/10/2023 Osteoporosis 04/28/2022 Subacute maxillary sinusitis 08/08/2021 Colon polyps 10/20/2020 Fatigue 10/20/2020 Acute low back pain due to trauma 12/25/2019 Pain of left lower extremity 12/25/2019 Hyperlipidemia 01/10/2018 Encounters Date Type Department Care Team Description 01/26/2025 Telephone Internal Medicine - [address] [place] [phone] Aarti Andres MD 01/08/2025 [facility] [address] [facility] [address] [place] [phone] Yovani LathaLORENZA 12/24/2024 [facility] [address] [facility] [address] [place] [phone] Yovani LathaLORENZA meek 12/08/2024 [facility] [address] [facility] [address] [place] [phone] Yovani LathaLORENZA 12/08/2024 [facility] [address] [phone] Latha Pina MA from Last 3 Months Surgical History Surgery Date Site/Laterality Comments HIP ARTHROPLASTY Right PROCEDURE: HISTORICAL HIP REPLACEMENT OTHER SURGICAL HISTORY PROCEDURE: AL OPTX FEM SHFT FX W/INSJ IMED IMPLT W/WO SCREW OTHER SURGICAL HISTORY 02/08/2018 PROCEDURE: LAPAROSCOPY, CHOLECYSTECTOMY Medical History Medical History Date Comments Anxiety DX:Anxiety Depression DX:Depression Asthma DX:Asthma Torticollis DX:Torticollis Migraines DX:Migraines GERD (gastroesophageal reflux disease) DX:GERD (gastroesophageal reflux disease) Hyperlipidemia 01/10/2018 DX:Hyperlipidemi a History of hip replacement, total, right 01/11/20 18 DX:History of hip replacement, total, right Constipation DX:Constipation Family History Medical History Relation Name Comments Esophageal cancer Father Breast cancer Mother Relation Name Status Comments Father Mother Social History Tobacco Use Types Packs/Day Years Used Date Smoking Tobacco: Never Smokeless Tobacco: Never Alcohol Use Standard Drinks/Week Comments No 0 (1 standard drink = 0.6 oz pur e alcohol) Housing Instability Answer Date Recorde d Are you worried that in the next 2 months you may not have stable housing? No 11/25/2024 Food Access & Nutrition Answer Date Rec orded Do you have access to a vari ety of food including fruits and vegetables? Yes 11/25/2024 Access to Healthcare Answer Date Record ed Within the last 3 months, rosa w many times did you visit the emergency department for your medical care? 1 11/25/2024 Health Literacy Answer Date Recorded How often do you need to hav e someone help you when you read instructions, pamphlets, or other written material from your doctor or pharmacy? Never 11/25/2024 Caregiver: How often do you need to have someone help you when you read instructions, pamphlets, or other written material from your doctor or pharmacy? Not on file 11/25/2024 Financial Risk Answer Date Recorded How hard is it for you to pa y for the very basics like food, housing, medical care, and air conditioning / heating? Not very hard 11/25/2024 Transportation Answer Date Recorded Has the lack of transportati on kept you from meetings, work, or from getting things needed for daily living? No Has the lack of transportati on kept you from medical appointments or from getting medications? No 11/25/2024 Social Isolation Answer Date Recorded How often do you feel lonely or isolated from those around you? Not asked 11/25/2024 Food Risk Answer Date Recorded Within the past 12 months we worried whether our food would run out before we got money to buy more. Never true 11/25/2024 Within the past 12 months th e food we bought just didn't last and we didn't have money to get more. Never true 11/25/2024 Education Answer Date Recorded Do you think completing more education or training, like finishing a GED, going to college, or learning a trade, would be helpful for you? N/A 11/25/2024 Employment and Income Answer Date Recor ded During the last four weeks, have you been actively looking for work? No 11/25/2024 Living Situation Answer Date Recorded What is your living situation? Unrecognized valu e 11/25/2024 Comments Unknown Sex and Gender Information Value Date Recorded Sex Assigned at Female 04/08/2024 3:46 PM EST Legal Sex Female 3:19 PM EST Gender Identity Female 04/08/2024 3:46 PM EST Sexual Orientation Straight 04/08/2024 3: 46 PM EST Obstetrics History Last Filed Vital Signs Vital Sign Reading Time Taken Comments Blood Pressure 126/62 11/25/2024 10:14 AM EDT Pulse 86 11/25/2024 10:14 AM EDT Temperature 36.8 C (98.2 F) 11/25/2024 10:14 AM EDT Respiratory Rate 18 11/25/2024 10:14 AM EDT Oxygen Saturation 94% 11/25/2024 10:14 AM EDT Inhaled Oxygen Concentration - - Weight 74.2 kg (163 lb 9.6 oz) 07/09/2024 11:38 AM EST Height 170.2 cm (5' 7 ) 07/09/2024 11:38 AM EST Body Mass Index 25.62 07/09/2024 11:38 AM EST Plan of Treatment Upcoming Encounters Date Type Department Care Team (Late st Contact Info) Description 04/02/2025 1:30 PM EST Office Visit Internal Medicine - [place] [address] [place] [phone] Aarti Andres MD [address] [place] [phone] Health Maintenance Due Date Last Done Comments Hepatitis A Vaccines (1 of 2 - Risk 2-dose series) 1961 Pneumococcal Vaccine: 50+ Years (1 of 2 - PCV) 1961 Zoster Vaccines (1 of 2) 1961 Hepatitis B Vaccines (1 of 3 - Risk 3-dose series) 2002 RSV Immunization Adult Patients (1 - 1-dose 75+ series) 2017 COVID-19 Vaccine (3 - Pfizer risk series) 08/06/2020 07/09/2020, 06/20/2020 Depression Screening 05/14/2024 07/10/2023 Falls Risk Assessment 07/10/2024 07/10/2023 Medicare Annual Wellness Visit 07/10/2024 07/10/2023 Influenza Vaccine (#1) 2025 , 03/01/2021, 03/08/2020, Additional history exists Hypertension/CHF/CAD Annual BMP Blood Test 11/18/2025 11/18/2024, 11/11/2024, 11/03/2024, Additional history exists Social Influencers of Health Screening 11/25/2025 11/25/2024 Cholesterol Screening (Lipid Panel) 03/07/2028 03/07/2023 DTaP,Tdap,and Td Vaccines (2 - Td or Tdap) 07/28/2030 07/28/2020 Osteoporosis Screening (Bone Density Screening) 01/24/2031 01/24/2021 HIB Vaccines Aged Out No longer eligi ble based on patient's age to complete this topic HPV Vaccines Aged Out No longer eligi ble based on patient's age to complete this topic IPV Vaccines Aged Out No longer eligi ble based on patient's age to complete this topic MMR Vaccines Aged Out No longer eligi ble based on patient's age to complete this topic Meningococcal ACWY Vaccine Aged Out N o longer eligible based on patient's age to complete this topic Meningococcal B Vaccine Aged Out No l onger eligible based on patient's age to complete this topic RSV Immunization Patients Under 20 months Aged Out No longer eligible based on patient's age to complete this topic Varicella Vaccines Aged Out No longer eligible based on patient's age to complete this topic Procedures Procedure Name Priority Date/Time Associated Diagnosis Comments COMPREHENSIVE METABOLIC PANEL Routine 11/18/2024 4:34 AM EDT Encounter for follow-up examination after completed treatment for malignant neoplasm DEPRESSION SCREENING Routine 07/10/2023 FALLS RISK ASSESSMENT Routine 07/10/2023 LIPID PANEL Routine 03/07/2023 [facility] DEXA AXIAL SKELETON Routine 01/24/2021 10:45 AM EDT Encounter for screening for osteoporosis from Last 3 Months or Most Recently Relevant to Health Maintenance Results * (ABNORMAL) Comprehensive metabolic panel (11/18/2024 4:34 AM EDT) Sodium 142 133 - 145 mmol/L LAB CHEMISTRY METHOD 11/18/2024 11:32 AM EDT [facility] Potassium 4.7 3.5 - 5.5 mmol/L LAB CHEMISTRY METHOD 11/18/2024 11:32 AM EDT [facility] Chloride 106 96 - 110 mmol/L LAB CHEMISTRY METHOD 11/18/2024 11:32 AM EDT [facility] CO2 32 21 - 32 mmol/L LAB CHEMISTRY METHOD 11/18/2024 11:32 AM [facility] Anion Gap 4 3 - 11 LAB CHEMISTRY METHOD 11/18/2024 11:32 AM [facility] Glucose 66(L) 70 - 100 mg/dL LAB CHEMISTRY METHOD 11/18/2024 11:32 AM [facility] BUN 10 5 - 25 mg/dL LAB CHEMISTRY METHOD 11/18/2024 11:32 AM [facility] Creatinine 0.68 0.50 - 1.10 mg/dL LAB CHEMISTRY METHOD 11/18/2024 11:32 AM [facility] eGFR 87 >=60 mL/min/1. 73m2 LAB CHEMISTRY METHOD 11/18/2024 11:32 AM [facility] Comment:Calculation based on the Chronic Kidney Disease Epidemiology Collaboration (CKD-EPI) equation refit without adjustment for race. BUN/Creatinine Ratio 14.7 LAB CHEMISTRY METHOD 11/18/2024 11:32 AM [facility] Calcium 9.2 8.5 - 10.5 mg/dL LAB CHEMISTRY METHOD 11/18/2024 11:32 AM [facility] AST (SGOT) 25 10 - 42 unit/L LAB CHEMISTRY METHOD 11/18/2024 11:32 AM [facility] ALT (SGPT) 52 10 - 60 unit/L LAB CHEMISTRY METHOD 11/18/2024 11:32 AM [facility] Alkaline Phosphatase 422(H) 42 - 121 unit/L LAB CHEMISTRY METHOD 11/18/2024 11:32 AM [facility] Total Protein 6.1 6.0 - 8.0 g/dL LAB CHEMISTRY METHOD 11/18/2024 11:32 AM [facility] Albumin 3.1(L) 3.2 - 5.0 g/dL LAB CHEMISTRY METHOD 11/18/2024 11:32 AM EDT [facility] Total Bilirubin 0.2 0.0 - 1.4 mg/dL LAB CHEMISTRY METHOD 11/18/2024 11:32 AM EDT [facility] Blood Venous blood specimen / Unknown Venipuncture / Unknown 11/18/2024 4:34 AM EDT 11/18/2024 9:15 AM EDT Sofia STOKES LAB BLOOD ORDERABLES Final Re sult [facility] [address] [place] [address], * Falls Risk Assessment (07/10/2023) Falls Risk Assessment abstracted Historical Provider MD HEALTH MAINTENANCE Final Result * Depression Screening (07/10/2023) Depression Screening abstracted Historical Provider MD HEALTH MAINTENANCE Final Result * Lipid panel (03/07/2023) LDL/HDL Ratio 2 0 - 4 Triglycerides 113 0 - 150 mg/dL Cholesterol 112 0 - 200 mg/dL HDL 46 >=40 mg/dL LDL Cholesterol 44 0 - 100 mg/dL Blood Venous blood specimen / Unknown Historical Provider LAB BLOOD ORDERABLES Katie l Result * VERONICA DEXA AXIAL SKELETON (01/24/2021 10:45 AM EDT) Anatomical Region Laterality Modality Mammography 01/24/2021 9:44 AM EDT Narrative 01/24/2021 10:45 AM EDT [facility] Diagnostic Imaging Department [address] [place] [address] Patient: LARA RODGERS /Age/Sex: 1940 80 - F Unit#: [id number] Location/Status: SPDIMAM/REG CLI Mnemonic/Ordering Site: MAMDEXAAX/SPMAM Ordering Physician: INGE FOSS MD Veronica Dexa Axial Skeleton - 01/24/21 - 1021 HISTORY: The patient is a 80-year-old postmenopausal female on chronic glucocorticoid therapy, with clinical concern for metabolic bone disease. The patient has a history of right hip replacement surgery. FINDINGS: Dual energy x-ray absorptiometry of the lumbar spine and left femur is performed. The mean bone mineral density at L3-4 is 0.856 gm/cm2 which is 71% of that of young normals and 82% of that of age matched controls. This yields a T-score of -2.9 and a Z-score of -1.5 which is diagnostic of osteoporosis. The mean bone mineral density of the left femur is 0.635 gm/cm2 which is 63% of that of young normals and 78% of that of age matched controls. This yields a T-score of -3.0 and a Z-score of -1.4 which is diagnostic of osteoporosis. IMPRESSION: 1. Osteoporosis. 2. FRAX analysis yields a 10-year probability of major osteoporotic fracture of 48.9% and a 10-year probability of hip fracture of 24.1%. Code 83503 Dictating Physician: MARNI SU MD Electronically Signed by: MARNI SU MD Dic Date/Time: 01/24/21 104 Sign date/Time: 01/24/21 1045 Procedure Note Marni Su MD - 05/10/2022 [facility] Diagnostic Imaging Department [address] [place] [address] Patient: LARA RODGERS Fabien Barrera/Age/Sex: 1940 - 80 - F Unit#: [id number] Location/Status: SPDIMAM/REG CLI Mnemonic/Ordering Site: MAMDEXAAX/SPMAM Ordering Physician: INGE FOSS MD Veronica Dexa Axial Skeleton - 01/24/211021 HISTORY: The patient is a 80-year-old postmenopausal female on chronic glucocorticoid therapy, with clinical concern for metabolic bone disease.The patient has a history of right hip replacement surgery. FINDINGS: Dual energy x-ray absorptiometry of the lumbar spine and leftfemur is performed. The mean bone mineral density at L3-4 is 0.856 gm/cm2 whichis 71% of that of young normals and 82% of that of age matched controls. Thisyields a T-score of -2.9 and a Z-score of -1.5 which is diagnostic ofosteoporosis. The mean bone mineral density of the left femur is 0.635 gm/cm2 which is63% of that of young normals and 78% of that of age matched controls. Thisyields a T-score of -3.0 and a Z-score of -1.4 which is diagnostic ofosteoporosis. IMPRESSION: 1. Osteoporosis. 2. FRAX analysis yields a 10-year probability of major osteoporoticfracture of 48.9% and a 10-year probability of hip fracture of 24.1%. Code 21011 Dictating Physician: MARNI SU MD Electronically Signed by: MARNI SU MD Dic Date/Time: 01/24/21 1043 Sign date/Time: 01/24/21 1045 Inge Foss MD IMG BI PROCEDURES Final Resu lt from Last 3 Months or Most Recently Relevant to Health Maintenance Insurance MEDICARE [facility] Advance Directives Documents on File Type Date Recorded Patient Document Control Coordinator Expl anation Health Care Decision (hx) 02/08/2018 AD HODGE DIRECTIVE Health Care Decision (hx) 02/08/2018 AD HODGE DIRECTIVE Health Care Decision (hx) 02/08/2018 AD HODGE DIRECTIVE Health Care Decision (hx) 02/08/2018 AD HODGE DIRECTIVE Health Care Decision (hx) 02/08/2018 AD HODGE DIRECTIVE Health Care Decision (hx) 02/08/2018 AD HODGE DIRECTIVE Health Care Decision (hx) 02/08/2018 AD HODGE DIRECTIVE Health Care Decision (hx) 02/08/2018 AD HODGE DIRECTIVE Health Care Decision (hx) 02/08/2018 AD HODGE DIRECTIVE Health Care Decision (hx) 02/08/2018 AD HODGE DIRECTIVE * Full Code - Confirmed (Latest Code Status on File) Date Activated Date Inactivated Comments 04/08/2024 10:40 PM 04/09/2024 3:37 PM This code status was ascertained in the following way: Code status discussion: discussion with patient To update the patient's code status, place a code status order. Do not modify or discontinue any currently active code status orders. Care Teams [employer] Relationship Specialty Start Date End Date Aarti Andres MD [address] [place] [phone] PCP - General Internal Medicine 06/24/19
== END 2025-03-03 15:40 | disposition home or self-care (01) ==
LOC: HO.HSM 14:58
PROVIDERS: PCP Internal Medicine; Visit Provider Registered Nurse
DX: G20.B1 Parkinson's disease with dyskinesia, without mention of fluctuations (principal); G62.9 Polyneuropathy, unspecified; G47.00 Insomnia, unspecified
CPT/HCPCS: 99214

== ENCOUNTER → 2025-03-03 14:57 | Outpatient (BNVA) | payer MEDICARE, SELFPAY | PROVIDERS: PCP Internal Medicine; Visit Provider Registered Nurse | DX: G20.C Parkinsonism, unspecified (principal); G62.9 Polyneuropathy, unspecified; G47.00 Insomnia, unspecified; Z79.899 Other long term (current) drug therapy | CPT/HCPCS: 99212 ==